=== PATIENT | female | born 1930 | race Caucasian/White ===

== ENCOUNTER 2016-10-18 21:29 | Emergency (ER) | payer MEDICARE ==
[2016-10-18] MEDS ORDERED: NORMAL SALINE 1000 ML 500 ML IV ONE (22:56)
--- NOTE | 2016-10-18 23:04 | ER Document Report ---
ED General - General Chief Complaint: Altered Mental Status Stated Complaint: NAUSEA,URINARY SYMPTOMS Notes: Patient is a 85 year old female that the family brings in due to increased confusion over last 2 days. They said that she possibly had a TIA several months ago. Since then she's had very mild occasional confusion. I see no last 2 days she's been very weak, confused, having difficulty talking or communicating with them. She does have history of chronic nausea. She has had workups for this including upper GI endoscopy as well as colonoscopy. These were done on October 16. The upper GI endoscopy showed a Schatzki's ring. They did do esophageal dilation. She did eat fairly well today. The colonoscopy showed a polyp. They're waiting results of this. These procedures were performed by Dr. Avilez. Patient is originally from the [facility] but over last several months has been living with her son and daughter here in the [place] area. No fevers. No cough. No congestion. She denies any pain. No focal weakness or numbness plates at this time. Patient's son is a pharmacist with the hospital. He is at bedside and is able to give a good history. Patient's daughter is also very involved in her care and at bedside as well. TRAVEL OUTSIDE OF THE [place] IN LAST 30 DAYS: No - Related Data Allergies/Adverse Reactions: No Known Allergies Allergy (Verified 10/18/16 21:57) Past Medical History - Social History Smoking Status: Never Smoker Chew tobacco use (# tins/day): No Frequency of alcohol use: None Drug Abuse: None Family History: Reviewed & Not Pertinent Renal/ Medical History: Denies: Hx Peritoneal Dialysis Review of Systems - Review of Systems Notes: My Normal Review Basic REVIEW OF SYSTEMS: CONSTITUTIONAL : Denies fever, chills, or sweats. Denies recent illness. EENT: Denies eye, ear, throat, or mouth pain or symptoms. Denies nasal or sinus congestion. CARDIOVASCULAR: Denies chest pain. RESPIRATORY: Denies cough, cold, or chest congestion. Denies shortness of breath, difficulty breathing, or wheezing. GASTROINTESTINAL: Denies abdominal pain. Denies nausea, vomiting, or diarrhea. Denies constipation. Last BM: GENITOURINARY: Denies difficulty urinating, painful urination, burning, frequency, or blood in urine.: MUSCULOSKELETAL: Denies neck or back pain or joint pain or swelling. SKIN: Denies rash or skin lesions. HEMATOLOGIC : Denies easy bruising or bleeding. NEUROLOGICAL: Confusion Denies headache. Denies weakness or paralysis or loss of use of either side. Denies problems with gait or speech. Denies sensory or motor loss. ALL OTHER SYSTEMS REVIEWED AND NEGATIVE. Physical Exam - Vital signs Vitals: Temp Pulse Resp BP Pulse Ox 98.5 F 81 18 170/83 H 97 10/18/16 21:59 10/18/16 21:59 10/18/16 21:59 10/18/16 21:59 10/18/16 21:59 - Notes Notes: General Appearance: Well nourished, alert, cooperative, no acute distress, no obvious discomfort. She is very weak on exam. Vitals: reviewed, See vital signs table. Head: no swelling or tenderness to the head Eyes: PERRL, EOMI, Conjuctiva clear Mouth: No decreasd moisture Throat: No tonsillar inflammation, No airway obstruction, No lymphadenopathy Neck: Supple, no neck tenderness, No thyromegaly Lungs: No wheezing, No rales, No rhonci, No accessory muscle use, good air exchange bilaterally. Heart: Normal rate, Regular rythm, No murmur, no rub Abdomen: Normal BS, soft, No rigidity, No abdominal tenderness, No guarding, no rebound, no abdominal masses, no organomegaly Extremities: strength 5/5 in all extremities, good pulses in all extremities, no swelling or tenderness in the extremities, no edema. Skin: warm, dry, appropriate color, no rash Neuro: speech clear, oriented x 3, normal affect, responds appropriately to questions. Cranial nerves II through XII are intact. Distal sensation intact. Patient has equal strength in all 4 extremities. Course - Vital Signs Vital signs: Temp Pulse Resp BP Pulse Ox 97.9 F 63 20 114/55 L 98 10/19/16 02:38 10/19/16 02:38 10/19/16 02:38 10/19/16 02:38 10/19/16 02:38 - Laboratory Result Diagrams: 10/18/16 23:05 10/18/16 23:05 Laboratory results interpreted by me: 10/18/16 10/18/16 10/19/16 23:05 23:05 00:14 Hgb 11.4 L Hct 34.2 L RDW 14.1 H Seg Neutrophils % 84.1 H Lymphocytes % 8.5 L BUN 31 H Creatinine 1.96 H Est GFR ( Amer) 29 L Est GFR (Non-Af Amer) 24 L Glucose 126 H Total Protein 6.2 L Urine Protein 100 H Urine Blood LARGE H Ur Leukocyte Esterase MODERATE H - EKG Interpretation by Me Additional EKG results interpreted by me: 10/18/16 23:24 EKG is reviewed and interpreted by me. EKG shows normal sinus rhythm with a rate of [address] segment elevation or depression. No ischemic T wave inversions. OR interval, QRS duration, QTC intervals are within normal range. No old EKG available for comparison. - Transfer of Care Notes: 10/19/16 05:09 Patient is feeling much improved. She did have a little bit nausea like she's had chronically. I gave her 1 dose of Zofran and she says that it helped her greatly. Also home with Zofran. Her QTc interval on her EKG is normal therefore think this is okay for her. She does have urinary tract infection. This explain some of the altered mental status that she had at home. Currently she is awake alert and acting appropriately. I did discuss the case with the patient's daughter. She does feel hopeful take her home. Patient looks very well and is feeling improved. She's not septic or toxic appearing. She has no leukocytosis. She has no fevers. I did give her a dose Rocephin here. We will send her urine for culture. I did send her home on Cipro. I strongly encouraged him to return to ER immediately if the patient has fevers, has recurrent confusion, or appears unwell. The patient and her daughter agree with plan and Mrs. Leon will be discharged home. Dictation of this chart was performed using voice recognition software; therefore, there may be some unintended grammatical errors. Discharge - Discharge Clinical Impression: UTI (urinary tract infection) Qualifiers: Urinary tract infection type: site unspecified Hematuria presence: with hematuria Qualified Code(s): N39.0 - Urinary tract infection, site not specified Condition: Good Disposition: HOME, SELF-CARE Additional Instructions: URINARY TRACT INFECTION: Your evaluation indicates that you have a urinary tract infection. This is due to germs growing in the bladder. This is a common problem. This infection usually responds quickly to antibiotics. Your antibiotic should be taken exactly as prescribed. Drink plenty of fluids -- three to four quarts a day. Occasionally, a bladder anesthetic will be prescribed to help stop the feeling of urgency until the antibiotic has a chance to clear the infection. This may cause your urine to be dark orange. Certain urine infections require a culture. If the doctor obtained a culture, the results will be back in two days. You should call to see if a change in treatment is needed. A repeat urinalysis after you finish treatment is often recommended. The physician will let you know if further testing is required. Call the doctor if you develop fever, chills, flank pain, inability to urinate, or blood in the urine. ANTIBIOTIC THERAPY: You have been given an antibiotic prescription. It's important that you take all the medication, unless instructed otherwise by your physician. Failure to complete the entire course can result in relapse of your condition. Common side effects of antibiotics include nausea, intestinal cramping, or diarrhea. Women may develop vaginal yeast infections, and babies can get yeast (thrush) in the mouth following the use of antibiotics. Contact your physician if you develop significant side effects from this medication. Allergy to this antibiotic can result in hives, wheezing, faintness, or itching. If symptoms of allergy occur, stop the medication and call the doctor. CIPROFLOXACIN: You have been given an antibacterial agent, ciprofloxacin (Cipro). This medicine is not related to the penicillins, sulfas, cephalosporins, or tetracyclines. It is often given to patients who are allergic to these drugs. It has been chosen for you either because other drugs are not appropriate, or because of the nature of your problem. Cipro should not be taken with antacids, as these can decrease its effectiveness. It can be taken without regard to meals. CIPRO SHOULD NOT BE TAKEN BY CHILDREN, NURSING WOMEN, OR WOMEN. Although Cipro is usually well-tolerated, common side effects can include nausea and diarrhea. Contact your doctor if you experience any unusual symptoms while on this medication, such as joint pain or swelling, shortness of breath, wheezing, faintness, or hives. FOLLOW-UP CARE: If you have been referred to a physician for follow-up care, call the physician s office for an appointment as you were instructed or within the next two days. If you experience worsening or a significant change in your symptoms, notify the physician immediately or return to the Emergency Department at any time for re-evaluation. Please follow-up with your doctor early this week for reevaluation. Please have a low threshold to return to ER immediately if you have recurrence of confusion, intractable vomiting, fevers, or feel unwell. Please take the Zofran as needed for nausea. Prescriptions: Cephalexin [Keflex] 500 mg PO BID #14 capsule Ondansetron [Zofran Odt 4 mg Tablet] 1 tab PO Q4H PRN #15 tab.rapdis PRN Reason: For Nausea/Vomiting Referrals: MG DAILEY MD [Primary Care Provider] - 10/21/16
[2016-10-18 23:17] LABS: ABSOLUTE BASOPHILS # (AUTO) 0.1 10^3/uL (0.0-0.2); ABSOLUTE LYMPHOCYTES (AUTO) 0.6 10^3/uL (0.5-4.7); ABSOLUTE MONOCYTES (AUTO) 0.4 10^3/uL (0.1-1.4); ABSOLUTE NEUT (AUTO) 5.5 10^3/uL (1.7-8.2); BASOPHILS % (AUTO) 0.8 % (0-2); EOSINOPHILS % (AUTO) 0.6 % (0-6); HEMATOCRIT 34.2 % (36.0-47.0); HEMOGLOBIN 11.4 g/dL (12.0-15.5); LYMPHOCYTES % (AUTO) 8.5 % (13-45); MEAN CORPUSCULAR HEMOGLOBIN 28.6 pg (27.0-33.4); MEAN CORPUSCULAR HGB CONC 33.3 g/dL (32.0-36.0); MEAN CORPUSCULAR VOLUME 86 fl (80-97); RED BLOOD COUNT 3.99 10^6/uL (3.72-5.28); RED CELL DISTRIBUTION WIDTH 14.1 % (11.5-14.0); SEGMENTED NEUTROPHILS % (AUTO) 84.1 % (42-78); WHITE BLOOD COUNT 6.6 10^3/uL (4.0-10.5)
[2016-10-18 23:29] LABS: ALANINE AMINOTRANSFERASE 19 U/L (9-52); ALBUMIN 3.6 g/dL (3.5-5.0); ALKALINE PHOSPHATASE 58 U/L (38-126); ANION GAP 9 (5-19); ASPARTATE AMINO TRANSFERASE 15 U/L (14-36); BILIRUBIN,TOTAL 0.5 mg/dL (0.2-1.3); BLOOD UREA NITROGEN 31 mg/dL (7-20); CALCIUM 9.8 mg/dL (8.4-10.2); CARBON DIOXIDE 27 mmol/L (22-30); CHLORIDE 104 mmol/L (98-107); CREATINE KINASE 55 U/L (30-135); CREATININE RESULT 1.96 mg/dL (0.52-1.25); GLUCOSE 126 mg/dL (75-110); MAGNESIUM 1.9 mg/dL (1.6-2.3); POTASSIUM 4.3 mmol/L (3.6-5.0); SODIUM 139.7 mmol/L (137-145); TOTAL PROTEIN 6.2 g/dL (6.3-8.2)
[2016-10-18 23:41] LABS: CREATINE KINASE MB 0.84 ng/mL (<4.55)
[2016-10-18 23:43] LABS: TROPONIN I < 0.012 ng/mL
[2016-10-19] MEDS ORDERED: ONDANSETRON HCL INJ/PF 4 MG/2 ML SDV IV ONE (00:23)
[2016-10-19 00:35] LABS: APPEARANCE,URINE CLOUDY; BILIRUBIN,URINE NEGATIVE (NEGATIVE); GLUCOSE, URINE NEGATIVE (NEGATIVE); KETONES,URINE NEGATIVE (NEGATIVE); LEUKOCYTE ESTERASE,URINE MODERATE (NEGATIVE); NITRITE,URINE NEGATIVE (NEGATIVE); PROTEIN,URINE 100 mg/dL (NEGATIVE); UROBILINOGEN,URINE NEGATIVE mg/dL (<2.0)
[2016-10-19] MEDS ORDERED: CEFTRIAXONE INJ 1000 MG VIAL IV ONE (00:57)
[2016-10-19] MEDS ORDERED: ONDANSETRON ODT 4 MG TAB (6 TAB/DSPK) PO PRN (02:03)
[2016-10-19 02:40] VITALS: BP 114/55
--- NOTE | 2016-10-19 08:23 | EKG REPORT ---
SEVERITY:- ABNORMAL ECG - SINUS RHYTHM CONSIDER LEFT VENTRICULAR HYPERTROPHY : Confirmed by: Ezra Schmitt MD 19-Oct-2016 08:22:57
== END 2016-10-19 02:38 | disposition home or self-care (01) ==
LOC: ER 21:29
DX: N39.0 Urinary tract infection, site not specified (principal); R41.0 Disorientation, unspecified; R11.0 Nausea; R53.1 Weakness; Z86.73 Personal history of transient ischemic attack (TIA), and cerebral infarction without residual deficits
CPT/HCPCS: 93005; 99285; 96361; 96375; 96365; 36415; 82553; 82550; 83735; 85025; 80053; 81001; 84484; 71010; 70450; 93010; J0696; J2405; J7030

== ENCOUNTER 2017-05-25 12:32 | Inpatient (IN) | payer MEDICARE ==
--- NOTE | 2017-05-25 12:55 | ER Document Report ---
ED Medical Screen (RME) - General Mode of Arrival: Wheelchair Information source: Patient, Relative - son TRAVEL OUTSIDE OF THE [place] IN LAST 30 DAYS: No <ALEJANDRINA ZAMORA - Last Filed: 05/25/17 13:01> <ARNOLD JACKSON - Last Filed: 05/25/17 14:36> - General Chief Complaint: Weakness Stated Complaint: FALL/WEAKNESS Time Seen by Provider: 05/25/17 12:38 Notes: Patient is a 86 year old female presenting to the emergency department for generalized weakness, double vision, and a frontal headache. Patient states that her head has been feeling funny for the past few days and she has been clutching her forehead. Patient states she has not been feeling well for the past week and has generalized weakness. Patient's double vision was onset this morning. Patient was helped to the bathroom this morning and she fell from a standing position. Patient states she did not hit her head but she landed on her left side; son states when he came back into the room, she was leaning up on the toilet and had not appeared to have had a hard fall. Patient's son states he did the arm raise test and she had equal strength bilaterally. Patient 's last known well was last night around 22:30. Patient states she cannot keep her eyes open. Patient is on plavix. (ALEJANDRINA ZAMORA) - Related Data Allergies/Adverse Reactions: No Known Allergies Allergy (Verified 05/25/17 12:35) Past Medical History Renal/ Medical History: Denies: Hx Peritoneal Dialysis <ALEJANDRINA ZAMORA - Last Filed: 05/25/17 13:01> Physical Exam <ALEJANDRINA ZAMORA - Last Filed: 05/25/17 13:01> <ARNOLD JACKSON - Last Filed: 05/25/17 14:36> - Vital signs Vitals: Temp Pulse Resp BP Pulse Ox 97.7 F 64 16 172/80 H 99 05/25/17 12:35 05/25/17 12:35 05/25/17 12:35 05/25/17 12:35 05/25/17 12:35 - Notes Notes: GENERAL: Alert. HEAD: Normocephalic, atraumatic. EYES: Pupils equal, round, and reactive to light. Right eye has lateral deviation, able to look up and down with right eye but not able to look medially. Vision intact with finger counting. ENT: Oral mucosa moist, tongue midline. NECK: Full range of motion. Supple. Trachea midline. LUNGS: Clear to auscultation bilaterally, no wheezes, rales, or rhonchi. No respiratory distress. HEART: Regular rate and rhythm. No murmurs, gallops, or rubs. EXTREMITIES: Moves all four extremities spontaneously. NEUROLOGICAL: Alert and oriented x3. Normal speech. Sensation grossly intact. (ALEJANDRINA ZAMORA) Course - Laboratory Result Diagrams: 05/25/17 13:15 05/25/17 13:15 <ARNOLD JACKSON - Last Filed: 05/25/17 14:36> - Vital Signs Vital signs: Temp Pulse Resp BP Pulse Ox 97.7 F 55 L 20 184/70 H 96 05/25/17 12:35 05/25/17 13:10 05/25/17 14:01 05/25/17 14:01 05/25/17 14:01 - Laboratory Laboratory results interpreted by me: 05/25/17 05/25/17 05/25/17 13:15 13:15 13:30 RBC 3.63 L Hgb 11.0 L Hct 32.0 L Lymphocytes % 12.7 L BUN 36 H Creatinine 2.00 H Est GFR ( Amer) 29 L Est GFR (Non-Af Amer) 24 L Alkaline Phosphatase 37 L Total Protein 5.8 L Albumin 3.4 L Urine Protein 100 H Urine Blood LARGE H Ur Leukocyte Esterase LARGE H Scribe Documentation - Scribe Written by Scribe:: Miryam De 05/25/2017 13:01 acting as scribe for :: Fabricio <ALEJANDRINA ZAMORA - Last Filed: 05/25/17 13:01>
--- NOTE | 2017-05-25 13:06 | RADIOLOGY REPORT (SQ) ---
EXAM DESCRIPTION: CT HEAD WITHOUT COMPLETED DATE/TIME: 05/25/2017 12:57 pm REASON FOR STUDY: double vision, BAUTISTA, stroke alert COMPARISON: 10/18/2016 TECHNIQUE: Axial images acquired through the brain without intravenous contrast. Images reviewed wi th bone, brain and subdural windows. Images stored on PACS. All CT scanners at this facility use dose modulation, iterative reconstruction, and/or weight based d osing when appropriate to reduce radiation dose to as low as reasonably achievable (ALARA). [facility]: Dose Right [facility]: CareDose [facility]: Dose Right [facility]: Teradose 4D [facility]: Web Wonks RADIATION DOSE: Up-to-date CT equipment and radiation dose reduction techniques were employed. CTDIv ol: 64.6 mGy. DLP: 1292 mGy-cm. mGy. LIMITATIONS: None. FINDINGS: VENTRICLES: Prominent. CEREBRUM: No masses. No hemorrhage. No midline shift. Areas of low density in the white matter mos t likely due to chronic micro-vascular ischemic change. No evidence for acute infarction. CEREBELLUM: No masses. No hemorrhage. No alteration of density. No evidence for acute infarction. EXTRAAXIAL SPACES: Mild age-related involutional change. No fluid collections. No masses. ORBITS AND GLOBE: No intra- or extraconal masses. Normal contour of globe without masses. CALVARIUM: No fracture. PARANASAL SINUSES: No fluid or mucosal thickening. SOFT TISSUES: No mass or hematoma. OTHER: No other significant finding. IMPRESSION: NO CT EVIDENCE OF ACUTE ISCHEMIA, HEMORRHAGE, OR MASS LESION. NO SIGNIFICANT CHANGE FRO M PRIOR STUDY. EVIDENCE OF ACUTE STROKE: NO. COMMENT: Pertinent positive or negative findings of the imaging study reported as a CRITICAL EXAM agustín JACKSON DO at12:59 on 05/25/2017. Category of Critical Exam: CODE STROKE TECHNICAL DOCUMENTATION: JOB ID: [id number] Quality ID # [id number]: Final reports with documentation of one or more dose reduction techniques (e.g., Au tomated exposure control, adjustment of the mA and/or kV according to patient size, use of iterative reconstruction technique) 2010 [employer]- All Rights Reserved
--- NOTE | 2017-05-25 13:14 | RADIOLOGY REPORT (SQ) ---
EXAM DESCRIPTION: CHEST SINGLE VIEW COMPLETED DATE/TIME: 05/25/2017 1:07 pm REASON FOR STUDY: double vision, BAUTISTA, stroke alert COMPARISON: 10/18/2016 EXAM PARAMETERS: NUMBER OF VIEWS: One view. TECHNIQUE: Single frontal radiographic view of the chest acquired. RADIATION DOSE: NA LIMITATIONS: None. FINDINGS: LUNGS AND PLEURA: No opacities, masses or pneumothorax. No pleural effusion. MEDIASTINUM AND HILAR STRUCTURES: No masses. Contour normal. HEART AND VASCULAR STRUCTURES: Heart stable in size. Normal vasculature. BONES: No acute findings. HARDWARE: None in the chest. OTHER: No other significant finding. IMPRESSION: NO ACUTE RADIOGRAPHIC FINDING IN THE CHEST. NO SIGNIFICANT CHANGE FROM PRIOR STUDY. TECHNICAL DOCUMENTATION: JOB ID: [id number]
[2017-05-25 13:31] LABS: ABSOLUTE BASOPHILS # (AUTO) 0.1 10^3/uL (0.0-0.2); ABSOLUTE EOSINOPHILS # (AUTO) 0.1 10^3/uL (0.0-0.6); ABSOLUTE LYMPHOCYTES (AUTO) 0.7 10^3/uL (0.5-4.7); ABSOLUTE MONOCYTES (AUTO) 0.4 10^3/uL (0.1-1.4); ABSOLUTE NEUT (AUTO) 4.3 10^3/uL (1.7-8.2); EOSINOPHILS % (AUTO) 2.4 % (0-6); LYMPHOCYTES % (AUTO) 12.7 % (13-45); MEAN CORPUSCULAR HEMOGLOBIN 30.2 pg (27.0-33.4); MEAN CORPUSCULAR HGB CONC 34.3 g/dL (32.0-36.0); MEAN CORPUSCULAR VOLUME 88 fl (80-97); MONOCYTES % (AUTO) 7.3 % (3-13); RED BLOOD COUNT 3.63 10^6/uL (3.72-5.28); SEGMENTED NEUTROPHILS % (AUTO) 76.6 % (42-78); WHITE BLOOD COUNT 5.5 10^3/uL (4.0-10.5)
[2017-05-25 13:35] LABS: PROTHROMBIN TIME 13.8 SEC (11.4-15.4)
[2017-05-25 13:51] LABS: ALANINE AMINOTRANSFERASE 30 U/L (9-52); ALBUMIN 3.4 g/dL (3.5-5.0); ALKALINE PHOSPHATASE 37 U/L (38-126); ANION GAP 10 (5-19); ASPARTATE AMINO TRANSFERASE 17 U/L (14-36); BILIRUBIN,DIRECT 0.3 mg/dL (0.0-0.4); BILIRUBIN,TOTAL 0.4 mg/dL (0.2-1.3); BLOOD UREA NITROGEN 36 mg/dL (7-20); CALCIUM 10.2 mg/dL (8.4-10.2); CARBON DIOXIDE 25 mmol/L (22-30); CHLORIDE 106 mmol/L (98-107); CREATINE KINASE 38 U/L (30-135); GLUCOSE 86 mg/dL (75-110); POTASSIUM 4.4 mmol/L (3.6-5.0); SODIUM 141.3 mmol/L (137-145); TOTAL PROTEIN 5.8 g/dL (6.3-8.2)
[2017-05-25] MEDS ORDERED: NORMAL SALINE 1000 ML 1,000 ML IV PRN (13:59)
[2017-05-25 14:02] LABS: CREATINE KINASE MB 1.13 ng/mL (<4.55)
[2017-05-25 14:03] LABS: APPEARANCE,URINE CLOUDY; BILIRUBIN,URINE NEGATIVE (NEGATIVE); GLUCOSE, URINE NEGATIVE (NEGATIVE); KETONES,URINE NEGATIVE (NEGATIVE); LEUKOCYTE ESTERASE,URINE LARGE (NEGATIVE); NITRITE,URINE NEGATIVE (NEGATIVE); PROTEIN,URINE 100 mg/dL (NEGATIVE); URINE SPECIFIC GRAVITY 1.006; UROBILINOGEN,URINE NEGATIVE mg/dL (<2.0)
[2017-05-25 14:03] LABS: TROPONIN I < 0.012 ng/mL
[2017-05-25] MEDS ORDERED: CEFTRIAXONE 1 GM/D5W RTU 1 GM/50 ML RTUPB IV ONE (14:12)
--- NOTE | 2017-05-25 14:46 | ER Document Report ---
ED General - General Chief Complaint: Weakness Stated Complaint: FALL/WEAKNESS Time Seen by Provider: 05/25/17 12:38 Mode of Arrival: Wheelchair Information source: Patient Notes: 86-year-old female presents with 2 week duration of worsening weakness. Patient denies any fevers or chills denies any nausea or vomiting. Patient has a history of UTIs was treated for urinary tract infection 3 weeks ago with Cipro. It was noted patient was extremely weak today took a fall TRAVEL OUTSIDE OF THE [place] IN LAST 30 DAYS: No - HPI Onset: Other Onset/Duration: Persistent Quality of pain: Achy Severity: Mild Pain Level: 1 Associated symptoms: Body/muscle aches Exacerbated by: Movement Relieved by: Denies Similar symptoms previously: Yes Recently seen / treated by doctor: Yes - Related Data Allergies/Adverse Reactions: No Known Allergies Allergy (Verified 05/25/17 12:35) Home Medications: Current Home Medications Clonidine HCl [Catapres 0.1 mg Tablet] 0.1 mg PO Q12 05/25/17 [History] Clopidogrel Bisulfate [Plavix 75 mg Tablet] 75 mg PO DAILY 05/25/17 [History] Fesoterodine Fumarate [Toviaz] 4 mg PO [id number] 05/25/17 [History] Lisinopril [Prinivil 2.5 mg Tablet] 2.5 mg PO DAILY 05/25/17 [History] Metoprolol Succinate [Toprol Xl 50 mg Tab.sr] 50 mg PO Q12 05/25/17 [History] Mirtazapine [Remeron 15 mg Tablet] 15 mg PO QHS 05/25/17 [History] Multivitamin [Tab-A-Brenda (Multiple Vitamin) Tablet] 1 tab PO DAILY 05/25/17 [ History] Pantoprazole Sodium [Protonix] 40 mg PO DAILY 05/25/17 [History] Trazodone HCl [Desyrel 50 mg Tablet] 50 mg PO QHS 05/25/17 [History] Past Medical History - General Information source: Patient, Relative - son - Social History Smoking Status: Unknown if Ever Smoked Cigarette use (# per day): No Chew tobacco use (# tins/day): No Smoking Education Provided: No Frequency of alcohol use: None Drug Abuse: None Family History: Reviewed & Not Pertinent - Past Medical History Cardiac Medical History: Reports: Hx Hypercholesterolemia, Hx Hypertension Renal/ Medical History: Denies: Hx Peritoneal Dialysis GI Medical History: Reports: Hx Gastroesophageal Reflux Disease Musculoskeltal Medical History: Reports Hx Arthritis Psychiatric Medical History: Reports: Hx Depression Past Surgical History: Reports: Hx Hysterectomy, Hx Orthopedic Surgery - toes - Immunizations Hx Diphtheria, Pertussis, Tetanus Vaccination: Yes Review of Systems - Review of Systems Notes: REVIEW OF SYSTEMS: CONSTITUTIONAL : Denies fever, chills, or sweats. Denies recent illness. EENT: Denies eye, ear, throat, or mouth pain or symptoms. Denies nasal or sinus congestion or discharge. Denies throat, tongue, or mouth swelling or difficulty swallowing. CARDIOVASCULAR: Denies chest pain. Denies palpitations or racing or irregular heart beat. Denies ankle edema. RESPIRATORY: Denies cough, cold, or chest congestion. Denies shortness of breath, difficulty breathing, or wheezing. GASTROINTESTINAL: Denies abdominal pain or distention. Denies nausea, vomiting , or diarrhea. Denies blood in vomitus, stools, or per rectum. Denies black, tarry stools. Denies constipation. GENITOURINARY: Denies difficulty urinating, painful urination, burning, frequency, blood in urine, or discharge. FEMALE GENITOURINARY: Denies vaginal bleeding, heavy or abnormal periods, irregular periods. Denies vaginal discharge or odor. MUSCULOSKELETAL: Denies back or neck pain or stiffness. Denies joint pain or swelling. SKIN: Denies rash, lesions or sores. HEMATOLOGIC : Denies easy bruising or bleeding. LYMPHATIC: Denies swollen, enlarged glands. NEUROLOGICAL: Admits to generalized weakness PSYCHIATRIC: Denies anxiety or stress. Denies depression, suicidal ideation, or homicidal ideation. ALL OTHER SYSTEMS REVIEWED AND NEGATIVE. PHYSICAL EXAMINATION: GENERAL: Well-appearing, well-nourished and in no acute distress. HEAD: Atraumatic, normocephalic. EYES: Pupils equal round and reactive to light, extraocular movements intact, conjunctiva are normal. ENT: Nares patent, oropharynx clear without exudates. Moist mucous membranes. NECK: Normal range of motion, supple without lymphadenopathy LUNGS: Breath sounds clear to auscultation bilaterally and equal. No wheezes rales or rhonchi. HEART: Regular rate and rhythm without murmurs ABDOMEN: Soft, nontender, nondistended abdomen. No guarding, no rebound. No masses appreciated. Female : deferred Musculoskeletal: Normal range of motion, no pitting or edema. No cyanosis. NEUROLOGICAL: Cranial nerves grossly intact. Normal speech, normal gait. Normal sensory, motor exams PSYCH: Normal mood, normal affect. SKIN: Warm, Dry, normal turgor, no rashes or lesions noted. Dictation was performed using [employer] voice recognition software Physical Exam - Vital signs Vitals: Temp Pulse Resp BP Pulse Ox 97.7 F 64 16 172/80 H 99 05/25/17 12:35 05/25/17 12:35 05/25/17 12:35 05/25/17 12:35 05/25/17 12:35 Course - Re-evaluation Re-evalutation: 05/25/17 16:12 Lab work is consistent with a urinary tract infection, patient started on Rocephin, she is extremely weak and unable to ambulate at home and has taken a fall. As a result I will observe the patient. She does have chronic kidney disease - Vital Signs Vital signs: Temp Pulse Resp BP Pulse Ox 97.7 F 55 L 21 H 187/81 H 98 05/25/17 12:35 05/25/17 13:10 05/25/17 15:01 05/25/17 15:01 05/25/17 15:01 - Laboratory Result Diagrams: 05/25/17 13:15 05/25/17 13:15 Laboratory results interpreted by me: 05/25/17 05/25/17 05/25/17 13:15 13:15 13:30 RBC 3.63 L Hgb 11.0 L Hct 32.0 L Lymphocytes % 12.7 L BUN 36 H Creatinine 2.00 H Est GFR ( Amer) 29 L Est GFR (Non-Af Amer) 24 L Alkaline Phosphatase 37 L Total Protein 5.8 L Albumin 3.4 L Urine Protein 100 H Urine Blood LARGE H Ur Leukocyte Esterase LARGE H - Diagnostic Test Radiology reviewed: Image reviewed, Reports reviewed Discharge - Discharge Clinical Impression: Weakness CKD (chronic kidney disease) Qualifiers: Chronic kidney disease stage: stage 3 (moderate) Qualified Code(s): N18.3 - Chronic kidney disease, stage 3 (moderate) UTI (urinary tract infection) Qualifiers: Urinary tract infection type: acute cystitis Hematuria presence: without hematuria Qualified Code(s): N30.00 - Acute cystitis without hematuria HTN (hypertension) Qualifiers: Hypertension type: essential hypertension Qualified Code(s): I10 - Essential ( primary) hypertension Condition: Stable Disposition: ADMITTED INPATIENT Admitting Provider: Hospitalist Unit Admitted: Telemetry
[2017-05-25] MEDS ORDERED: ONDANSETRON 4 MG TAB.RAPDIS PO PRN (15:25)
[2017-05-25] MEDS ORDERED: ACETAMINOPHEN 325 MG TABLET PO PRN (15:25)
[2017-05-25] MEDS ORDERED: HYDRALAZINE HCL INJ/PF 20 MG/1 ML SDV IV ONE (15:34)
[2017-05-25] MEDS ORDERED: HYDRALAZINE HCL INJ/PF 20 MG/1 ML SDV IV PRN (15:36)
[2017-05-25] MEDS ORDERED: NIFEDIPINE 30 MG TAB.ER.24 PO ONE (15:38)
--- NOTE | 2017-05-25 16:06 | PDOC H&P ---
History of Present Illness Admission Date/PCP: 05/25/17 15:20 MG DAILEY MD Patient complains of: Altered Mental Status, Vision Change, and Weakness History of Present Illness: RUSSELL NOVAK is a 86 year old female presents to the emergency room with complaint of weakness, vision change, and head discomfort. Patient's son is patient's caregiver who states that this morning patient was sitting at the table for breakfast and was dozing off to sleep. Patient stated that his mother reported that she was not feeling well. Son reports that patient was treated for urinary tract infection approximately 2 weeks ago. Son also reports that patient's PCP adjust the patient's blood pressure medications for better control. Son reports the patient takes metoprolol, clonidine, and lisinopril. Son also reports that patient was also started on mirtazapine. Patient states that she is still experiencing head discomfort. Patient also states that her vision is not back to his baseline. Patient states that she does have macular degeneration but this vision change is somewhat different. Patient denies chest pain or shortness of breath. Patient also reports that she does feel somewhat confused which is not normal for her. Son also reports that patient fell in the restroom this morning. Son states that he help guide his mother to the restroom and shut the door when he left his mother she had fallen toward the shower. Son states that patient was resting on shower chair located in tub. Past Medical History Cardiac Medical History: Reports: Hyperlipidema, Hypertension GI Medical History: Reports: Gastroesophageal Reflux Disease Musculoskeltal Medical History: Reports: Arthritis Psychiatric Medical History: Reports: Depression Hematology: Reports: Anemia Past Surgical History Past Surgical History: Reports: Hysterectomy, Orthopedic Surgery - toes Social History Smoking Status: Unknown if Ever Smoked Family History Family History: Reviewed & Not Pertinent Parental Family History Reviewed: Yes Children Family History Reviewed: Yes Sibling(s) Family History Reviewed.: Yes Medication/Allergy Home Medications: Clonidine HCl [Catapres 0.1 mg Tablet] 0.1 mg PO Q12 05/25/17 Clopidogrel Bisulfate [Plavix 75 mg Tablet] 75 mg PO DAILY 05/25/17 Fesoterodine Fumarate [Toviaz] 4 mg PO [id number] 05/25/17 Lisinopril [Prinivil 2.5 mg Tablet] 2.5 mg PO DAILY 05/25/17 Metoprolol Succinate [Toprol Xl 50 mg Tab.sr] 50 mg PO Q12 05/25/17 Mirtazapine [Remeron 15 mg Tablet] 15 mg PO QHS 05/25/17 Multivitamin [Tab-A-Brenda (Multiple Vitamin) Tablet] 1 tab PO DAILY 05/25/17 Pantoprazole Sodium [Protonix] 40 mg PO DAILY 05/25/17 Trazodone HCl [Desyrel 50 mg Tablet] 50 mg PO QHS 05/25/17 Allergies/Adverse Reactions: No Known Allergies Allergy (Verified 05/25/17 12:35) Review of Systems Constitutional: PRESENT: fatigue, headache(s), weakness Eyes: PRESENT: visual disturbances Ears: ABSENT: hearing changes Cardiovascular: ABSENT: chest pain, dyspnea on exertion, edema, orthropnea, palpitations Respiratory: ABSENT: cough, hemoptysis Gastrointestinal: ABSENT: abdominal pain, constipation, diarrhea, hematemesis, hematochezia, nausea, vomiting Genitourinary: ABSENT: dysuria, hematuria Musculoskeletal: ABSENT: joint swelling Integumentary: ABSENT: rash, wounds Neurological: PRESENT: frequent falls, weakness Psychiatric: ABSENT: anxiety, depression, homidical ideation, suicidal ideation Hematologic/Lymphatic: ABSENT: easy bleeding, easy bruising Physical Exam Vital Signs: Temp Pulse Resp BP Pulse Ox 97.7 F 55 L 20 184/70 H 96 05/25/17 12:35 05/25/17 13:10 05/25/17 14:01 05/25/17 14:01 05/25/17 14:01 General appearance: PRESENT: no acute distress, well-developed, well-nourished Head exam: PRESENT: atraumatic, normocephalic Eye exam: PRESENT: conjunctival injection, EOMI Ear exam: PRESENT: normal external ear exam Mouth exam: PRESENT: moist, tongue midline Neck exam: ABSENT: carotid bruit, JVD, lymphadenopathy, thyromegaly Respiratory exam: PRESENT: clear to auscultation tato. ABSENT: rales, rhonchi, wheezes Cardiovascular exam: PRESENT: bradycardia Pulses: PRESENT: normal dorsalis pedis pul Vascular exam: PRESENT: normal capillary refill GI/Abdominal exam: PRESENT: normal bowel sounds, soft. ABSENT: distended, guarding, mass, organolmegaly, rebound, tenderness Rectal exam: PRESENT: deferred Extremities exam: PRESENT: full ROM. ABSENT: calf tenderness, clubbing, pedal edema Neurological exam: PRESENT: alert, awake, oriented to person, oriented to place , oriented to time, oriented to situation, CN II-XII grossly intact. ABSENT: motor sensory deficit Psychiatric exam: PRESENT: appropriate affect, normal mood. ABSENT: homicidal ideation, suicidal ideation Skin exam: PRESENT: dry, intact, warm. ABSENT: cyanosis, rash Results Impressions: Chest X-Ray 05/25/17 12:46 IMPRESSION: NO ACUTE RADIOGRAPHIC FINDING IN THE CHEST. NO SIGNIFICANT CHANGE FROM PRIOR STUDY. Head CT 05/25/17 12:46 IMPRESSION: NO CT EVIDENCE OF ACUTE ISCHEMIA, HEMORRHAGE, OR MASS LESION. NO SIGNIFICANT CHANGE FROM PRIOR STUDY. EVIDENCE OF ACUTE STROKE: NO. Assessment & Plan - Diagnosis (1) Hypertensive emergency Is this a current diagnosis for this admission?: Yes Plan: We will write for hydralazine now and then as needed hydralazine. Will place patient on Procardia. Goal is to decrease blood pressure slowly. (2) Acute metabolic encephalopathy Is this a current diagnosis for this admission?: Yes Plan: Most likely secondary to hypertension and mirtazapine: We will discontinue mirtazapine. Will adjust her pressure medication for better control. (3) Fall Qualifiers: Encounter type: initial encounter Qualified Code(s): W19.XXXA - Unspecified fall, initial encounter Is this a current diagnosis for this admission?: Yes Plan: Will have patient work with PT OT (4) CKD (chronic kidney disease) Qualifiers: Chronic kidney disease stage: stage 3 (moderate) Qualified Code(s): N18.3 - Chronic kidney disease, stage 3 (moderate) Is this a current diagnosis for this admission?: Yes Plan: We will monitor renal function closely. Patient's renal function appears to be at baseline. (5) UTI (urinary tract infection) Qualifiers: Urinary tract infection type: acute cystitis Hematuria presence: without hematuria Qualified Code(s): N30.00 - Acute cystitis without hematuria Is this a current diagnosis for this admission?: Yes Plan: We will continue Rocephin until urine culture results are known (6) Debility Is this a current diagnosis for this admission?: Yes Plan: We will have PT OT work with patient. (7) Vision changes Is this a current diagnosis for this admission?: Yes Plan: We will reassess in a.m. Will see if complaint improves if not will have ophthalmology see patient (8) DVT prophylaxis Is this a current diagnosis for this admission?: Yes Plan: SCDs - Time Time Spent: 30 to 50 Minutes
[2017-05-25] MEDS: NIFEDIPINE 30 MG TAB.ER.24 PO SCH (22:33)
[2017-05-26 05:17] LABS: ABSOLUTE EOSINOPHILS # (AUTO) 0.1 10^3/uL (0.0-0.6); ABSOLUTE LYMPHOCYTES (AUTO) 0.8 10^3/uL (0.5-4.7); ABSOLUTE MONOCYTES (AUTO) 0.4 10^3/uL (0.1-1.4); ABSOLUTE NEUT (AUTO) 4.1 10^3/uL (1.7-8.2); BASOPHILS % (AUTO) 0.9 % (0-2); EOSINOPHILS % (AUTO) 2.5 % (0-6); HEMATOCRIT 30.8 % (36.0-47.0); HEMOGLOBIN 10.7 g/dL (12.0-15.5); HGB HCT DIFFERENCE 1.3; LYMPHOCYTES % (AUTO) 14.4 % (13-45); MEAN CORPUSCULAR HEMOGLOBIN 30.6 pg (27.0-33.4); MEAN CORPUSCULAR HGB CONC 34.9 g/dL (32.0-36.0); MEAN CORPUSCULAR VOLUME 88 fl (80-97); MONOCYTES % (AUTO) 6.8 % (3-13); RED BLOOD COUNT 3.51 10^6/uL (3.72-5.28); RED CELL DISTRIBUTION WIDTH 14.2 % (11.5-14.0); SEGMENTED NEUTROPHILS % (AUTO) 75.4 % (42-78); WHITE BLOOD COUNT 5.4 10^3/uL (4.0-10.5)
[2017-05-26 05:32] LABS: ANION GAP 10 (5-19); BLOOD UREA NITROGEN 35 mg/dL (7-20); CALCIUM 9.9 mg/dL (8.4-10.2); CARBON DIOXIDE 22 mmol/L (22-30); CHLORIDE 111 mmol/L (98-107); CREATININE RESULT 1.92 mg/dL (0.52-1.25); GLUCOSE 91 mg/dL (75-110); POTASSIUM 3.8 mmol/L (3.6-5.0); SODIUM 143.2 mmol/L (137-145)
[2017-05-26 06:05] LABS: THYROID STIMULATING HORMONE 1.24 uIU/mL (0.47-4.68)
--- NOTE | 2017-05-26 06:24 | EKG REPORT ---
SEVERITY:- NORMAL ECG - SINUS RHYTHM : Confirmed by: Sonali Chahal MD 26-May-2017 06:24:19
[2017-05-26] MEDS: CEFTRIAXONE 1 GM/D5W RTU 1 GM/50 ML RTUPB IV SCH (09:24)
[2017-05-26] MEDS: NIFEDIPINE 30 MG TAB.ER.24 PO SCH ×2 (09:24→22:36)
[2017-05-26] MEDS ORDERED: NIFEDIPINE 30 MG TAB.ER.24 PO ONE (14:20)
[2017-05-26] MEDS ORDERED: ACETAMINOPHEN 325 MG TABLET PO PRN (14:20)
[2017-05-26] MEDS ORDERED: ONDANSETRON 4 MG TAB.RAPDIS PO PRN (14:30)
[2017-05-26] MEDS ORDERED: HYDRALAZINE HCL INJ/PF 20 MG/1 ML SDV IV PRN (14:30)
--- NOTE | 2017-05-26 15:15 | PDOC PROGRESS REPORT ---
Subjective Progress Note for:: 05/26/17 Subjective:: Patient was seen earlier this morning who states that her vision has not improved. Patient states her vision is so poor that she is not able to feed herself. Nursing states that patient's blood pressure has been under better control. Patient is no longer complaining of headache. Physical Exam Vital Signs: Temp Pulse Resp BP Pulse Ox 98.4 F 91 17 159/65 H 99 05/26/17 11:35 05/26/17 11:35 05/26/17 11:35 05/26/17 11:35 05/26/17 11:35 Intake & Output 05/25/17 05/26/17 05/27/17 06:59 06:59 06:59 Intake Total 160 Output Total 500 Balance -340 Weight 71 kg General appearance: PRESENT: no acute distress, well-developed, well-nourished Head exam: PRESENT: atraumatic, normocephalic Eye exam: PRESENT: conjunctiva pink, EOMI Ear exam: PRESENT: normal external ear exam Mouth exam: PRESENT: moist, tongue midline Neck exam: ABSENT: carotid bruit, JVD, lymphadenopathy, thyromegaly Respiratory exam: PRESENT: clear to auscultation tato. ABSENT: rales, rhonchi, wheezes Cardiovascular exam: PRESENT: bradycardia, RRR. ABSENT: diastolic murmur, rubs , systolic murmur Pulses: PRESENT: normal dorsalis pedis pul Vascular exam: PRESENT: normal capillary refill GI/Abdominal exam: PRESENT: normal bowel sounds, soft. ABSENT: distended, guarding, mass, organolmegaly, rebound, tenderness Rectal exam: PRESENT: deferred Extremities exam: PRESENT: full ROM. ABSENT: calf tenderness, clubbing, pedal edema Neurological exam: PRESENT: alert, awake, oriented to person, oriented to place , oriented to time, oriented to situation, CN II-XII grossly intact. ABSENT: motor sensory deficit Psychiatric exam: PRESENT: appropriate affect, normal mood. ABSENT: homicidal ideation, suicidal ideation Skin exam: PRESENT: dry, intact, warm. ABSENT: cyanosis, rash Results Laboratory Results: 05/26/17 03:54 05/26/17 03:54 05/26/17 05/26/17 05/26/17 03:54 03:54 03:54 WBC 5.4 RBC 3.51 L Hgb 10.7 L Hct 30.8 L MCV 88 MCH 30.6 MCHC 34.9 RDW 14.2 H Plt Count 176 Seg Neutrophils % 75.4 Lymphocytes % 14.4 Monocytes % 6.8 Eosinophils % 2.5 Basophils % 0.9 Absolute Neutrophils 4.1 Absolute Lymphocytes 0.8 Absolute Monocytes 0.4 Absolute Eosinophils 0.1 Absolute Basophils 0.0 Sodium 143.2 Potassium 3.8 Chloride 111 H Carbon Dioxide 22 Anion Gap 10 BUN 35 H Creatinine 1.92 H Est GFR ( Amer) 30 L Est GFR (Non-Af Amer) 25 L Glucose 91 Calcium 9.9 TSH 1.24 Free T4 1.51 05/25/17 05/25/17 05/26/17 16:09 22:05 03:54 Troponin I < 0.012 < 0.012 < 0.012 Impressions: Chest X-Ray 05/25/17 12:46 IMPRESSION: NO ACUTE RADIOGRAPHIC FINDING IN THE CHEST. NO SIGNIFICANT CHANGE FROM PRIOR STUDY. Head CT 05/25/17 12:46 IMPRESSION: NO CT EVIDENCE OF ACUTE ISCHEMIA, HEMORRHAGE, OR MASS LESION. NO SIGNIFICANT CHANGE FROM PRIOR STUDY. EVIDENCE OF ACUTE STROKE: NO. Assessment & Plan - Diagnosis (1) Hypertensive encephalopathy Is this a current diagnosis for this admission?: Yes Plan: Patient's confusion has resolved. Patient continues to state that she is not able to see well. We will have ophthalmology evaluate patient. Will increase Procardia to 60 mg p.o. twice daily. (2) Vision changes Is this a current diagnosis for this admission?: Yes Plan: Dr. Heath has been consulted ophthalmology. Feel that this is most likely related to patient's hypertension. (3) Hypertensive emergency Is this a current diagnosis for this admission?: Yes Plan: Patient did receive IV hydralazine. Patient's Procardia will be adjusted to 60 mg p.o. daily. Patient still complaining of poor vision. Will have ophthalmology evaluate patient. (4) Acute metabolic encephalopathy Is this a current diagnosis for this admission?: Yes Plan: Secondary to hypertensive encephalopathy: Resolved. (5) Fall Qualifiers: Encounter type: initial encounter Qualified Code(s): W19.XXXA - Unspecified fall, initial encounter Is this a current diagnosis for this admission?: Yes Plan: We will have patient work with PT OT (6) CKD (chronic kidney disease) Qualifiers: Chronic kidney disease stage: stage 3 (moderate) Qualified Code(s): N18.3 - Chronic kidney disease, stage 3 (moderate) Is this a current diagnosis for this admission?: Yes Plan: Patient's renal function is at baseline. (7) UTI (urinary tract infection) Qualifiers: Urinary tract infection type: acute cystitis Hematuria presence: without hematuria Qualified Code(s): N30.00 - Acute cystitis without hematuria Is this a current diagnosis for this admission?: Yes Plan: Urine culture pending.Will continue Rocephin (8) Debility Is this a current diagnosis for this admission?: Yes Plan: We will have PT OT work with patient. (9) DVT prophylaxis Is this a current diagnosis for this admission?: Yes Plan: SCDs - Time Time Spent with patient: 15-24 minutes
[2017-05-27] MEDS: NIFEDIPINE 30 MG TAB.ER.24 PO SCH ×2 (10:55→21:30)
[2017-05-27] MEDS: MULTIVITAMIN TABLET PO SCH (10:56)
[2017-05-27] MEDS: CLOPIDOGREL BISULFATE 75 MG TABLET PO SCH (10:56)
[2017-05-27] MEDS: CEFTRIAXONE 1 GM/D5W RTU 1 GM/50 ML RTUPB IV SCH (10:56)
--- NOTE | 2017-05-27 17:53 | PDOC PROGRESS REPORT ---
Subjective Progress Note for:: 05/27/17 Subjective:: Patient is a 86-year-old female who presented with hypertensive emergency now complaining of continued vision loss. States she has poor vision at baseline due to macular degeneration. However patient is found to have a paralysis of the right eye most likely due to ischemia. Patient was evaluated by ophthalmology. Did have a discussion with patient's son as to patient's current situation. Physical Exam Vital Signs: Temp Pulse Resp BP Pulse Ox 98.8 F 107 H 16 149/67 H 95 05/27/17 15:50 05/27/17 15:50 05/27/17 15:50 05/27/17 15:50 05/27/17 15:50 Intake & Output 05/26/17 05/27/17 05/28/17 06:59 06:59 06:59 Intake Total 160 1487 850 Output Total 500 800 200 Balance -340 687 650 Weight 71 kg 71 kg General appearance: PRESENT: no acute distress, other - elderly Head exam: PRESENT: normocephalic Eye exam: PRESENT: other - EOMI palsey of right eye Neck exam: PRESENT: full ROM Respiratory exam: PRESENT: clear to auscultation tato. ABSENT: unlabored Cardiovascular exam: PRESENT: RRR, +S1, +S2 GI/Abdominal exam: PRESENT: normal bowel sounds, soft. ABSENT: tenderness Rectal exam: PRESENT: deferred Extremities exam: ABSENT: pedal edema Musculoskeletal exam: PRESENT: full ROM Neurological exam: PRESENT: other - paralysis of the right eye inablility to move inward Psychiatric exam: PRESENT: normal mood Skin exam: PRESENT: intact, warm Results Laboratory Results: 05/26/17 03:54 05/26/17 03:54 05/25/17 05/25/17 05/26/17 16:09 22:05 03:54 Troponin I < 0.012 < 0.012 < 0.012 Impressions: Chest X-Ray 05/25/17 12:46 IMPRESSION: NO ACUTE RADIOGRAPHIC FINDING IN THE CHEST. NO SIGNIFICANT CHANGE FROM PRIOR STUDY. Head CT 05/25/17 12:46 IMPRESSION: NO CT EVIDENCE OF ACUTE ISCHEMIA, HEMORRHAGE, OR MASS LESION. NO SIGNIFICANT CHANGE FROM PRIOR STUDY. EVIDENCE OF ACUTE STROKE: NO. Assessment & Plan - Diagnosis (1) Ophthalmalgia Qualifiers: Laterality: right Qualified Code(s): H57.11 - Ocular pain, right eye Is this a current diagnosis for this admission?: Yes Plan: Evaluated by ophthalmology who recommended patient have an MRI of the brain. Patient has a right ophthalmoplegia most likely due to ischemia from being hypertensive. Per ophthalmology tissue resolved to 3 months on his own. Patient patient may not improve very much as she does have advanced macular degeneration. (2) CKD (chronic kidney disease) Qualifiers: Chronic kidney disease stage: stage 3 (moderate) Qualified Code(s): N18.3 - Chronic kidney disease, stage 3 (moderate) Is this a current diagnosis for this admission?: Yes Plan: Patient renal function at baseline (3) DVT prophylaxis Is this a current diagnosis for this admission?: Yes Plan: Continue SCDs (4) Debility Is this a current diagnosis for this admission?: Yes Plan: Patient receiving PT OT evaluation. Patient may have debilitated due to her inability to see. (5) Fall Qualifiers: Encounter type: initial encounter Qualified Code(s): W19.XXXA - Unspecified fall, initial encounter Is this a current diagnosis for this admission?: Yes Plan: Patient being evaluated by PT and OT (6) Hypertensive encephalopathy Is this a current diagnosis for this admission?: Yes Plan: Patient mentation is now improved. Patient blood pressures are better controlled on current medications. MRI of the brain was ordered as patient does have a ophthalmoplegia. Acutely patient patient may not improve much following better control of her blood pressures patient does have [employer] degeneration. Patient ophthalmoplegia may improve after several months. (7) UTI (urinary tract infection) Qualifiers: Urinary tract infection type: acute cystitis Hematuria presence: without hematuria Qualified Code(s): N30.00 - Acute cystitis without hematuria Is this a current diagnosis for this admission?: Yes Plan: Urine culture still pending. Continue ceftriaxone. - Time Time Spent with patient: 15-24 minutes Anticipated discharge: Home with Homehealth - Discussed plan of care with patient's son. Also spoke with flight operations inspector regarding further evaluation and testing.
--- NOTE | 2017-05-27 19:04 | RADIOLOGY REPORT (SQ) ---
EXAM DESCRIPTION: MRI HEAD WITHOUT COMPLETED DATE/TIME: 05/27/2017 6:41 pm REASON FOR STUDY: stroke COMPARISON: 05/25/[address] TECHNIQUE: Multiplanar imaging includes non-contrasted T1, T2, FLAIR, and diffusion with ADC map seq uences. Images stored on PACS. LIMITATIONS: None. FINDINGS: ANATOMY: No anomalies. Normal vascular flow voids. Pituitary fossa normal. CSF SPACES: Atrophy induced prominence of ventricles and CSF spaces. CEREBRUM: High signal intensity lesions scattered throughout the white matter on FLAIR imaging with d istribution suggesting micro-vascular ischemic changes. No evidence of hemorrhage, mass, or extraaxi al fluid collection. POSTERIOR FOSSA: No signal alteration. No hemorrhage. No edema, masses or mass effect. Internal junior tory canals, cerebello-pontine angles, mastoids normal. DIFFUSION IMAGING: Positive for acute or sub-acute 3 mm lacunar infarction in the left temporal lobe- subcortical insular region. ORBITS: No masses. Globes normal. PARANASAL SINUSES: No fluid levels. Mucosa normal. OTHER: No other significant finding. IMPRESSION: Positive for acute or sub-acute 3 mm lacunar infarction in the left temporal lobe- subco rtical insular region. EVIDENCE OF ACUTE STROKE: Yes LEFT MCA TECHNICAL DOCUMENTATION: JOB ID: [id number]- All Rights Reserved
[2017-05-27] MEDS: TRAZODONE HCL 50 MG TABLET PO SCH (21:29)
[2017-05-28] MEDS ORDERED: (PENDING PHARMACY ID) (Fesoterodine Fumarate [Toviaz] 4 MG) PO SCH (08:00)
[2017-05-28] MEDS ORDERED: ASPIRIN 81 MG TABLET, CHEWABLE PO ONE (10:30)
[2017-05-28] MEDS: CLOPIDOGREL BISULFATE 75 MG TABLET PO SCH (10:30)
[2017-05-28] MEDS: MULTIVITAMIN TABLET PO SCH (10:31)
[2017-05-28] MEDS: CEFTRIAXONE 1 GM/D5W RTU 1 GM/50 ML RTUPB IV SCH (10:31)
[2017-05-28] MEDS: NIFEDIPINE 30 MG TAB.ER.24 PO SCH ×2 (10:31→22:00)
[2017-05-28] MEDS ORDERED: OMEGA-3 ACID ETHYL ESTERS 1 GM CAPSULE PO ONE ×2 (11:00→16:30)
[2017-05-28] MEDS ORDERED: LANSOPRAZOLE 30 MG TAB.RAP.DR PO ONE (11:30)
[2017-05-28 11:50] LABS: CHOLESTEROL 219.48 mg/dL (0-200); Direct HDL 56 mg/dL (>40); TRIGLYCERIDES 151 mg/dL (<150)
[2017-05-28 12:01] LABS: DIRECT LDL 141 mg/dL (<100)
[2017-05-28 12:02] LABS: VLDL CHOLESTEROL 30.2 mg/dL (10-31)
--- NOTE | 2017-05-28 15:35 | RADIOLOGY REPORT (SQ) ---
EXAM DESCRIPTION: CAROTID DOPPLER COMPLETED DATE/TIME: 05/28/2017 2:50 pm REASON FOR STUDY: stroke COMPARISON: CT brain 10/18/2016, 05/25/2017 MRI brain 05/27/2017 TECHNIQUE: Grayscale ultrasound, Doppler velocity and spectra, and color Doppler images acquired of the extra-cranial carotid and vertebral arteries. Images stored on PACS. LIMITATIONS: None. FINDINGS: RIGHT CAROTID CCA Velocities: Within normal limits. ICA Velocities Peak systolic 0.62 m/s. End diastolic 0.12 m/s. Proximal ICA/CCA peak systolic ratio 1.5. Spectra normal. No significant plaque. LEFT CAROTID CCA Velocities: Within normal limits. ICA Velocities Peak systolic 0.98 m/s. End diastolic 0.16 m/s. Proximal ICA/CCA peak systolic ratio 1.8. Spectra normal. No significant plaque. VERTEBRAL ARTERIES: Antegrade flow. Normal waveforms. SUBCLAVIAN ARTERIES: Not examined OTHER: No other significant finding. IMPRESSION: NO HEMODYNAMICALLY SIGNIFICANT STENOSIS. COMMENT: Quality ID #[id number]: Velocity criteria are extrapolated from the diameter data as defined by t he Society of Radiologists in Ultrasound Consensus Conference. Radiology 2003: 229; 340-346. TECHNICAL DOCUMENTATION: JOB ID: [id number] [employer]- All Rights Reserved
--- NOTE | 2017-05-28 19:12 | PDOC PROGRESS REPORT ---
Subjective Progress Note for:: 05/28/17 Subjective:: Patient is a 86-year-old female who presented with hypertensive emergency now complaining of continued vision loss. States she has poor vision at baseline due to macular degeneration. However patient is found to have a paralysis of the right eye most likely due to ischemia. Patient was evaluated by ophthalmology. Patient did have MRI of the brain which did show a subacute acute stroke. Patient is having some weakness when ambulating she is leaning to one side. Did have a long discussion with patient's son and they are agreeable for her to go to rehab. Patient family did mention [facility] in [place]. Physical Exam Vital Signs: Temp Pulse Resp BP Pulse Ox 99.0 F 104 H 28 H 129/60 H 98 05/28/17 15:20 05/28/17 16:00 05/28/17 16:00 05/28/17 16:00 05/28/17 16:00 Intake & Output 05/27/17 05/28/17 05/29/17 06:59 06:59 06:59 Intake Total 1487 1813 100 Output Total 800 1200 Balance 687 613 100 Weight 71 kg 71 kg General appearance: PRESENT: no acute distress Head exam: PRESENT: normocephalic Eye exam: PRESENT: periorbital swelling Mouth exam: PRESENT: moist, neck supple Neck exam: PRESENT: full ROM. ABSENT: JVD Respiratory exam: PRESENT: clear to auscultation tato, unlabored Cardiovascular exam: PRESENT: RRR, +S1, +S2 GI/Abdominal exam: PRESENT: normal bowel sounds, soft. ABSENT: tenderness Rectal exam: PRESENT: deferred Extremities exam: ABSENT: pedal edema, tenderness Musculoskeletal exam: PRESENT: normal inspection Neurological exam: PRESENT: alert, awake, oriented to person, oriented to place , oriented to time, oriented to situation - impaired vision Psychiatric exam: PRESENT: normal mood Skin exam: PRESENT: warm - ecchymosis Results Laboratory Results: 05/26/17 03:54 05/26/17 03:54 05/28/17 11:12 Triglycerides 151 H Cholesterol 219.48 H LDL Cholesterol Direct 141 H VLDL Cholesterol 30.2 HDL Cholesterol 56 05/25/17 05/25/17 05/26/17 16:09 22:05 03:54 Troponin I < 0.012 < 0.012 < 0.012 Impressions: Chest X-Ray 05/25/17 12:46 IMPRESSION: NO ACUTE RADIOGRAPHIC FINDING IN THE CHEST. NO SIGNIFICANT CHANGE FROM PRIOR STUDY. Head CT 05/25/17 12:46 IMPRESSION: NO CT EVIDENCE OF ACUTE ISCHEMIA, HEMORRHAGE, OR MASS LESION. NO SIGNIFICANT CHANGE FROM PRIOR STUDY. EVIDENCE OF ACUTE STROKE: NO. Head MRI 05/27/17 00:00 IMPRESSION: Positive for acute or sub-acute 3 mm lacunar infarction in the left temporal lobe- subcortical insular region. EVIDENCE OF ACUTE STROKE: Yes LEFT MCA Carotid Doppler Study 05/28/17 00:00 IMPRESSION: NO HEMODYNAMICALLY SIGNIFICANT STENOSIS. Assessment & Plan - Diagnosis (1) CVA (cerebral vascular accident) Qualifiers: CVA mechanism: occlusion Precerebral and cerebral artery: middle cerebral artery Laterality of affected vessel: right Qualified Code(s): I63.511 - Cerebral infarction due to unspecified occlusion or stenosis of right middle cerebral artery Is this a current diagnosis for this admission?: Yes Plan: I show subacute acute stroke. Patient already on Plavix were added aspirin 325. Patient is intolerant to statin. She was however started on omega-3 patient on DVT prophylaxis with SCDs. PT OT consulted. Patient is having some gait instability. Patient being referred to rehab. (2) Ophthalmalgia Qualifiers: Laterality: right Qualified Code(s): H57.11 - Ocular pain, right eye Is this a current diagnosis for this admission?: Yes Plan: MRI brain shows subacute stroke. Patient has a right ophthalmoplegia most likely due to ischemia from being hypertensive however this can also happen with a midbrain stroke. Per ophthalmology this should resolve in 3 months. Patient vision may not improve very much as she does have advanced macular degeneration. (3) CKD (chronic kidney disease) Qualifiers: Chronic kidney disease stage: stage 3 (moderate) Qualified Code(s): N18.3 - Chronic kidney disease, stage 3 (moderate) Is this a current diagnosis for this admission?: Yes Plan: Patient renal function at baseline. He does have a CKD stage IV. (4) DVT prophylaxis Is this a current diagnosis for this admission?: Yes Plan: Continue SCDs (5) Debility Is this a current diagnosis for this admission?: Yes Plan: Patient receiving PT OT evaluation. Patient may have debilitated due to her inability to see however this may be impacted by patient acute subacute 3 mm lacunar infarct in the left temporal lobe subacute cortical insular region or a left MCA stroke. (6) Fall Qualifiers: Encounter type: initial encounter Qualified Code(s): W19.XXXA - Unspecified fall, initial encounter Is this a current diagnosis for this admission?: Yes Plan: Patient being evaluated by PT and OT. Gait instability may be secondary to acute stroke. Case management being consulted for rehab placement. (7) Hypertensive encephalopathy Is this a current diagnosis for this admission?: Yes Plan: Patient mentation is now improved. Patient blood pressures are better controlled on current medications. MRI show subacute stroke. (8) UTI (urinary tract infection) Qualifiers: Urinary tract infection type: acute cystitis Hematuria presence: without hematuria Qualified Code(s): N30.00 - Acute cystitis without hematuria Is this a current diagnosis for this admission?: Yes Plan: Urine culture still pending. Continue ceftriaxone. - Time Time Spent with patient: Less than 15 minutes Anticipated discharge: SNF Within: when bed available - Stent will have to be accepted by rehabilitation. Case management was consulted in regards to this. Did have a long discussion with the son regarding the treatment and care plan for the patient.
--- NOTE | 2017-05-28 19:28 | XCELERA REPORT ---
[address] [address] Transthoracic Echocardiogram Report Name: RUSSELL NOVAK Age: 86 yrs Gender: Female : 1930 Patient Status: Inpatient Patient Location: [address] [place] [address] Study Date: 05/28/2017 10:37 AM Height: 65 in Weight: 156 lb BSA: 1.8 m2 Procedure: A complete two-dimensional transthoracic echocardiogram was performed (2D, M-mode, spectral and color flow Doppler). The study was technically difficult with many images being suboptimal in quality. Reason For Study: stroke Ordering Physician: CARRIE ANDERSEN Performed By: Janet Mccauley Interpretation Summary The study was technically difficult with many images being suboptimal in quality. The left ventricular ejection fraction is normal. There is borderline concentric left ventricular hypertrophy. The left ventricle is grossly normal size. Doppler measurements suggest pseudonormalized left ventricular relaxation, which is associated with grade II/IV or mild to moderate diastolic dysfunction Wall motion cannot be accurately commented on, but no definite regional wall motion abnormalities noted. Regional wall motion abnormalities cannot be excluded due to limited visualization. The right ventricular systolic function is normal. The left atrial size is normal. The right atrium is mildly dilated. There is a trace amount of mitral regurgitation There is no mitral valve stenosis. No aortic regurgitation is present. There is no aortic valve stenosis There is a trace to mild amount of tricuspid regurgitation There is mild pulmonary hypertension by echo Right ventricular systolic pressure is estimated to be elevated at 30- 40mmHg. The aortic root is not well visualized. The inferior vena cava was not well visualized Minimal pericardial effusion. MMode/2D Measurements & Calculations RVDd: 2.5 cm LVIDd: 4.1 cm FS: 31.9 % Ao root diam: 3.0 cm IVSd: 1.0 cm LVIDs: 2.8 cm EDV(Teich): 76.4 ml LVPWd: 1.0 cm ESV(Teich): 30.3 ml Ao root area: 7.0 cm2 EF(Teich): 60.4 % LA dimension: 3.5 cm Doppler Measurements & Calculations MV E max brenda: MV P1/2t max brenda: Ao V2 max: LV V1 max P.5 cm/sec 75.5 cm/sec 148.6 cm/sec 7.2 mmHg MV A max brenda: MV P1/2t: 89.4 msec Ao max PG: LV V1 max: 99.7 cm/sec 8.8 mmHg 133.8 cm/sec MV E/A: 0.79 MVA(P1/2t): 2.5 cm2 MV dec slope: 247.4 cm/sec2 MV dec time: 0.29 sec PA V2 max: TR max brenda: 142.6 cm/sec 268.8 cm/sec PA max PG: TR max P.9 mmHg 8.1 mmHg Left Ventricle The left ventricle is grossly normal size. There is borderline concentric left ventricular hypertrophy. The left ventricular ejection fraction is normal. Doppler measurements suggest pseudonormalized left ventricular relaxation, which is associated with grade II/IV or mild to moderate diastolic dysfunction. Wall motion cannot be accurately commented on, but no definite regional wall motion abnormalities noted. Regional wall motion abnormalities cannot be excluded due to limited visualization. Right Ventricle The right ventricle is mildly dilated. There is normal right ventricular wall thickness. The right ventricular systolic function is normal. Atria The right atrium is mildly dilated. The left atrial size is normal. Interarterial septum not well visualized and not well dopplered. Cannot comment on ASD/PFO presence. Mitral Valve The mitral valve is grossly normal. There is no mitral valve stenosis. There is a trace amount of mitral regurgitation. Aortic Valve The aortic valve is not well visualized secondary to technical limitations. There is no aortic valve stenosis. No aortic regurgitation is present. Tricuspid Valve The tricuspid valve is not well visualized secondary to technical limitations. There is no tricuspid stenosis. There is a trace to mild amount of tricuspid regurgitation. There is mild pulmonary hypertension by echo. Right ventricular systolic pressure is estimated to be elevated at 30-40mmHg. Pulmonic Valve The pulmonic valve is not well visualized. Great Vessels The aortic root is not well visualized. The inferior vena cava was not well visualized. Effusions Minimal pericardial effusion. Incidental Findings No definite cardiac source of CVA/TIA noted on this particular trans- thoracic study. Consider INOCENTE if clinically indicated. May consider mobile cardiac telemetry monitoring (MCT) for ruling out transient AFIB. : CARRIE ANDERSEN > Jose Hinson
[2017-05-28] MEDS: TRAZODONE HCL 50 MG TABLET PO SCH (22:00)
[2017-05-28] MEDS ORDERED: ATORVASTATIN CALCIUM 40 MG TABLET PO SCH (22:00)
[2017-05-29] MEDS ORDERED: LANSOPRAZOLE 30 MG TAB.RAP.DR PO SCH (06:00)
[2017-05-29] MEDS: FESOTERODINE FUMARATE 4 MG PO SCH (08:23)
[2017-05-29] MEDS: NIFEDIPINE 30 MG TAB.ER.24 PO SCH ×2 (10:29→21:17)
[2017-05-29] MEDS: CEFTRIAXONE 1 GM/D5W RTU 1 GM/50 ML RTUPB IV SCH (10:29)
[2017-05-29] MEDS: CLOPIDOGREL BISULFATE 75 MG TABLET PO SCH (10:29)
[2017-05-29] MEDS: MULTIVITAMIN TABLET PO SCH (10:29)
[2017-05-29] MEDS: OMEGA-3 ACID ETHYL ESTERS 1 GM CAPSULE PO SCH (10:29)
[2017-05-29] MEDS: PANTOPRAZOLE SODIUM 40 MG PO SCH (10:29)
[2017-05-29] MEDS ORDERED: CARBOXYMETHYLCELLULOSE SOD 0.5% 0.4 ML DROPERETTE OU PRN (12:33)
[2017-05-29] MEDS: TOBRAMYCIN SULFATE/DEXAMETH OPH SUSP 2.5 ML OD SCH ×3 (13:16→21:17)
[2017-05-29] MEDS ORDERED: METOPROLOL TARTRATE PF/INJ 5 MG/5 ML SDV IV ONE (18:31)
[2017-05-29] MEDS ORDERED: NORMAL SALINE 500 ML IV PRN (18:31)
--- NOTE | 2017-05-29 19:55 | EKG REPORT ---
SEVERITY:- OTHERWISE NORMAL ECG - SINUS TACHYCARDIA BORDERLINE LEFT AXIS DEVIATION : Confirmed by: Ezra Schmitt MD 29-May-2017 19:54:06
--- NOTE | 2017-05-29 20:22 | PDOC PROGRESS REPORT ---
Subjective Progress Note for:: 05/29/17 Subjective:: Patient is a 86-year-old female who presented with hypertensive emergency found to have a stroke. Patient states she is having difficulty opening the right eye. She is otherwise feeling okay. Physical Exam Vital Signs: Temp Pulse Resp BP Pulse Ox 98.4 F 127 H 28 H 137/63 H 98 05/29/17 15:56 05/29/17 16:00 05/29/17 16:00 05/29/17 16:00 05/29/17 16:00 Intake & Output 05/28/17 05/29/17 05/30/17 06:59 06:59 06:59 Intake Total 1813 400 532 Output Total 1200 Balance 613 400 532 Weight 71 kg 73.2 kg General appearance: PRESENT: no acute distress, well-nourished Head exam: PRESENT: normocephalic Eye exam: PRESENT: other - swelling of the right upper and lower lid with discharge on the eye. No tenderness. ABSENT: scleral icterus Ear exam: PRESENT: normal external ear exam Mouth exam: PRESENT: moist, tongue midline Neck exam: ABSENT: carotid bruit, JVD, lymphadenopathy, thyromegaly Respiratory exam: PRESENT: clear to auscultation tato. ABSENT: rales, rhonchi, wheezes Cardiovascular exam: PRESENT: RRR. ABSENT: diastolic murmur, rubs, systolic murmur Pulses: PRESENT: normal dorsalis pedis pul Vascular exam: PRESENT: normal capillary refill GI/Abdominal exam: PRESENT: normal bowel sounds, soft. ABSENT: distended, guarding, mass, organolmegaly, rebound, tenderness Rectal exam: PRESENT: deferred Extremities exam: PRESENT: full ROM. ABSENT: calf tenderness, clubbing, pedal edema Neurological exam: PRESENT: alert, awake, oriented to person, oriented to place , oriented to time, oriented to situation, other - Loss of vision and low of right eye movement.. ABSENT: motor sensory deficit Psychiatric exam: PRESENT: appropriate affect, normal mood. ABSENT: homicidal ideation, suicidal ideation Skin exam: PRESENT: dry, warm, other - ecchymosis of the legs.. ABSENT: cyanosis, rash Results Laboratory Results: 05/26/17 03:54 05/26/17 03:54 10/08/17 10/08/17 10/09/17 16:09 22:05 03:54 Troponin I < 0.012 < 0.012 < 0.012 Impressions: Chest X-Ray 05/25/17 12:46 IMPRESSION: NO ACUTE RADIOGRAPHIC FINDING IN THE CHEST. NO SIGNIFICANT CHANGE FROM PRIOR STUDY. Head CT 05/25/17 12:46 IMPRESSION: NO CT EVIDENCE OF ACUTE ISCHEMIA, HEMORRHAGE, OR MASS LESION. NO SIGNIFICANT CHANGE FROM PRIOR STUDY. EVIDENCE OF ACUTE STROKE: NO. Head MRI 05/27/17 00:00 IMPRESSION: Positive for acute or sub-acute 3 mm lacunar infarction in the left temporal lobe- subcortical insular region. EVIDENCE OF ACUTE STROKE: Yes LEFT MCA Carotid Doppler Study 05/28/17 00:00 IMPRESSION: NO HEMODYNAMICALLY SIGNIFICANT STENOSIS. Assessment & Plan - Diagnosis (1) CVA (cerebral vascular accident) Qualifiers: CVA mechanism: occlusion Precerebral and cerebral artery: middle cerebral artery Laterality of affected vessel: right Qualified Code(s): I63.511 - Cerebral infarction due to unspecified occlusion or stenosis of right middle cerebral artery Is this a current diagnosis for this admission?: Yes Plan: I show subacute acute stroke. Patient already on Plavix were added aspirin 325. Patient is intolerant to statin. She was however started on omega-3 patient on DVT prophylaxis with SCDs. PT OT consulted. Patient is having some gait instability. Plan for discharge to rehab in the morning. Will schedule follow up with neurology. Cardiology follow up for event monitor. (2) Ophthalmalgia Qualifiers: Laterality: right Qualified Code(s): H57.11 - Ocular pain, right eye Is this a current diagnosis for this admission?: Yes Plan: MRI brain shows subacute stroke. Patient has a right ophthalmoplegia most likely due to ischemia from being hypertensive however this can also happen with a midbrain stroke. Per ophthalmology this should resolve in 3 months. Patient vision may not improve very much as she does have advanced macular degeneration. Will schedule follow up on discharge. (3) CKD (chronic kidney disease) Qualifiers: Chronic kidney disease stage: stage 3 (moderate) Qualified Code(s): N18.3 - Chronic kidney disease, stage 3 (moderate) Is this a current diagnosis for this admission?: Yes Plan: Patient renal function at baseline. 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 (4) DVT prophylaxis Is this a current diagnosis for this admission?: Yes Plan: Continue SCDs (5) Debility Is this a current diagnosis for this admission?: Yes Plan: Secondary to stroke. PT/OT following. Plan for discharge to rehab in the morning. (6) Fall Qualifiers: Encounter type: initial encounter Qualified Code(s): W19.XXXA - Unspecified fall, initial encounter Is this a current diagnosis for this admission?: Yes Plan: PT/OT consulted. Plan for discharge to rehab in the morning. (7) Hypertensive encephalopathy Is this a current diagnosis for this admission?: Yes Plan: Patient mentation is now improved. Continue current blood pressure medication. (8) UTI (urinary tract infection) Qualifiers: Urinary tract infection type: acute cystitis Hematuria presence: without hematuria Qualified Code(s): N30.00 - Acute cystitis without hematuria Is this a current diagnosis for this admission?: Yes Plan: Ecoli uti. Patient has received 4 does of ceftriaxone. Last does to be given tomorrow. (9) Sinus tachycardia Is this a current diagnosis for this admission?: Yes Plan: Patient given IV bolus of fluids, metoprolol IV push 5mg x 1 and started on troprol XL 25mg dialy. Will follow up EKG. Will check electrolytes in the am. (10) Blepharitis Qualifiers: Laterality: right Eyelid: both upper and lower Is this a current diagnosis for this admission?: Yes Plan: Discussed with ophthamologist who recommended treating with artificial tears and antibiotic drops. Patient to follow up as out patient. - Time Time Spent with patient: 15-24 minutes Anticipated discharge: SNF Within: within 24 hours - If patient stable in the am will discharge to rehab
[2017-05-29] MEDS: TRAZODONE HCL 50 MG TABLET PO SCH (21:17)
[2017-05-30] MEDS: METOPROLOL TARTRATE PF/INJ 5 MG/5 ML SDV IV PRN ×2 (00:27→06:25)
[2017-05-30] MEDS: TOBRAMYCIN SULFATE/DEXAMETH OPH SUSP 2.5 ML OD SCH ×4 (02:32→14:23)
[2017-05-30 06:58] LABS: ANION GAP 13 (5-19); BLOOD UREA NITROGEN 35 mg/dL (7-20); CARBON DIOXIDE 21 mmol/L (22-30); CHLORIDE 109 mmol/L (98-107); CREATININE RESULT 2.22 mg/dL (0.52-1.25); GLUCOSE 122 mg/dL (75-110); POTASSIUM 3.7 mmol/L (3.6-5.0); SODIUM 142.6 mmol/L (137-145)
[2017-05-30] MEDS ORDERED: NORMAL SALINE 500 ML IV PRN (08:37)
[2017-05-30] MEDS ORDERED: POTASSIUM CHLORIDE 10 MEQ TABLET.SA PO ONE (08:37)
[2017-05-30] MEDS: FESOTERODINE FUMARATE 4 MG PO SCH (08:58)
[2017-05-30] MEDS: CLOPIDOGREL BISULFATE 75 MG TABLET PO SCH (09:10)
[2017-05-30] MEDS: NIFEDIPINE 30 MG TAB.ER.24 PO SCH (09:10)
[2017-05-30] MEDS: OMEGA-3 ACID ETHYL ESTERS 1 GM CAPSULE PO SCH (09:15)
[2017-05-30] MEDS: MULTIVITAMIN TABLET PO SCH (09:18)
[2017-05-30] MEDS: PANTOPRAZOLE SODIUM 40 MG PO SCH (09:20)
[2017-05-30] MEDS ORDERED: METOPROLOL SUCCINATE 25 MG TAB.SR.24H PO SCH ×3 (10:00→10:28)
--- NOTE | 2017-05-30 14:08 | PDOC TRANSFER SUMMARY ---
General - Admit/Disc Date/PCP Admission Date/Primary Care Provider: 05/25/17 15:25 MG DAILEY MD Discharge Date: 05/30/17 - Discharge Diagnosis (1) CVA (cerebral vascular accident) Is this a current diagnosis for this admission?: Yes (2) Ophthalmalgia Is this a current diagnosis for this admission?: Yes (3) CKD (chronic kidney disease) Is this a current diagnosis for this admission?: Yes (4) DVT prophylaxis Is this a current diagnosis for this admission?: Yes (5) Debility Is this a current diagnosis for this admission?: Yes (6) Fall Is this a current diagnosis for this admission?: Yes (7) Hypertensive encephalopathy Is this a current diagnosis for this admission?: Yes (8) UTI (urinary tract infection) Is this a current diagnosis for this admission?: Yes (9) Sinus tachycardia Is this a current diagnosis for this admission?: Yes (10) Blepharitis Is this a current diagnosis for this admission?: Yes - Additional Information Resuscitation Status: Full Code Discharge Diet: Cardiac, Full Liquids, Other (Comments) - no straws, make sure patient no drinking to quickly and head is positioned appropriately. Discharge Activity: Activity As Tolerated Home Medications: Clopidogrel Bisulfate [Plavix 75 mg Tablet] 75 mg PO DAILY 05/25/17 Fesoterodine Fumarate [Toviaz] 4 mg PO ACBRKFST 05/25/17 Metoprolol Succinate [Toprol Xl 50 mg Tab.sr] 50 mg PO Q12 05/25/17 Multivitamin [Tab-A-Rbenda (Multiple Vitamin) Tablet] 1 tab PO DAILY 05/25/17 Pantoprazole Sodium [Protonix] 40 mg PO DAILY 05/25/17 Trazodone HCl [Desyrel 50 mg Tablet] 50 mg PO QHS 05/25/17 Sucralfate [Carafate 1 gm Tablet] 1 gm PO MEALSHS 05/28/17 Acetaminophen [Tylenol 325 mg Tablet] 325 mg PO Q6HP PRN tablet 05/30/17 Carboxymethylcellulose Sodium [Refresh Plus 0.5% Oph Soln 0.4 ml Droperette] 1 drop OD BID droperette 05/30/17 Nifedipine [Procardia XL 30 mg Tablet] 60 mg PO Q12 tab.er.24 05/30/17 [place]-3 Acid Ethyl Esters [Lovaza 1 gm Capsule] 1 gm PO DAILY capsule 05/30/17 Tobramycin Sulfate [Tobrex 0.3% Oph Soln 5 ml] 1 drop OS Q12 5 Days #1 bottle History of Present Illness Admission Date/PCP: 05/25/17 15:25 MG DAILEY MD Patient complains of: Altered Mental Status, Vision Change, and Weakness History of Present Illness: RUSSELL NOVAK is a 86 year old female presents to the emergency room with complaint of weakness, vision change, and head discomfort. Patient's son is patient's caregiver who states that this morning patient was sitting at the table for breakfast and was dozing off to sleep. Patient stated that his mother reported that she was not feeling well. Son reports that patient was treated for urinary tract infection approximately 2 weeks ago. Son also reports that patient's PCP adjust the patient's blood pressure medications for better control. Son reports the patient takes metoprolol, clonidine, and lisinopril. Son also reports that patient was also started on mirtazapine. Patient states that she is still experiencing head discomfort. Patient also states that her vision is not back to his baseline. Patient states that she does have macular degeneration but this vision change is somewhat different. Patient denies chest pain or shortness of breath. Patient also reports that she does feel somewhat confused which is not normal for her. Son also reports that patient fell in the restroom this morning. Son states that he help guide his mother to the restroom and shut the door when he left his mother she had fallen toward the shower. Son states that patient was resting on shower chair located in tub. 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 Patient having a tendency to lean to the left and is weak when standing. Patient tends to want to lean her head back while drinking and has to be repositioned so she won't cough. Patient working with PT/OT who strongly recommend rehab. Patient started on aspirin in addition to the plavix which she was already on. Patient is intolerant to statin. She was however started on omega-3. Patient being discharged to rehab. Will schedule follow up with neurology. Cardiology follow up for event monitor. (2) Ophthalmalgia MRI brain shows subacute stroke. 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 Patient was evaluated by ophthalmology. Per ophthalmology this should resolve in 3 months. Patient vision may not improve very much as she does have advanced macular degeneration. Will schedule follow up with ophthalmology on discharge. (3) CKD (chronic kidney disease) Patient renal function at baseline. 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 (4) DVT prophylaxis Patient treated with SCDs. (5) Debility Secondary to stroke. Patient being discharged to rehab. Please refer to CVA for further details. (6) Fall PT/OT consulted. Patient being discharged to rehab. Please refer to CVA for further details. (7) Hypertensive encephalopathy Patient was very hypertensive on admission. Patient mentation is now improved with the use of procardia. Patient other blood pressure medications were discontinued. (8) UTI (urinary tract infection) Ecoli UTI treated with ceftriaxone. (9) Sinus tachycardia Patient developed sinus tachycardia but appears to have a problem with this as she is no toprolol XL 50mg bid at home. Will resume this medication on discharge. (10) Blepharitis This is affecting the right eye. Discussed with ophthamologist who recommended treating with artificial tears and antibiotic drops for a few days. He also implied that patient may be splinting or keeping that eye close because of the ophthalmaplegia that may be causing her to have diplopia and or eye discomfort. Patient to follow up as out patient. (11) Delerium Patient may had an episode of delerium last night. The can occurs because of an acute illness UTI and or hospitalization. Patient is now back to her baseline which is pleasant and cooperative. Physical Exam Vital Signs: Temp Pulse Resp BP Pulse Ox 97.8 F 102 H 22 H 133/54 H 96 05/30/17 11:55 05/30/17 11:55 05/30/17 11:55 05/30/17 11:55 05/30/17 11:55 Intake & Output 05/29/17 05/30/17 05/31/17 06:59 06:59 06:59 Intake Total 400 792 50 Balance 400 792 50 Weight 73.2 kg 72.2 kg General appearance: PRESENT: no acute distress, well-nourished Head exam: PRESENT: normocephalic Eye exam: PRESENT: other - fullness of the eye lids. Patient cannot move her right eye inward. ABSENT: scleral icterus Ear exam: PRESENT: normal external ear exam Mouth exam: PRESENT: moist, tongue midline Neck exam: ABSENT: carotid bruit, JVD, lymphadenopathy, thyromegaly Respiratory exam: PRESENT: clear to auscultation tato. ABSENT: rales, rhonchi, wheezes Cardiovascular exam: PRESENT: RRR. ABSENT: diastolic murmur, rubs, systolic murmur Pulses: PRESENT: normal dorsalis pedis pul Vascular exam: PRESENT: normal capillary refill GI/Abdominal exam: PRESENT: normal bowel sounds, soft. ABSENT: distended, guarding, mass, organolmegaly, rebound, tenderness Rectal exam: PRESENT: deferred Extremities exam: PRESENT: full ROM. ABSENT: calf tenderness, clubbing, pedal edema Neurological exam: PRESENT: alert, awake, oriented to person, oriented to place , oriented to time, oriented to situation, CN II-XII grossly intact, other - poor vision. Can move all extremities but weak when standing and leans to the left. ABSENT: motor sensory deficit Psychiatric exam: PRESENT: appropriate affect, normal mood. ABSENT: homicidal ideation, suicidal ideation Skin exam: PRESENT: dry, intact, warm, other - ecchymosis especially on the legs. ABSENT: cyanosis, rash Results Laboratory Results: 05/26/17 03:54 05/30/17 06:36 05/30/17 06:36 Sodium 142.6 Potassium 3.7 Chloride 109 H Carbon Dioxide 21 L Anion Gap 13 BUN 35 H Creatinine 2.22 H Est GFR ( Amer) 25 L Est GFR (Non-Af Amer) 21 L Glucose 122 H Calcium 10.0 Magnesium 2.0 05/27/17 03:19 Clean Catch Midstream Urine Culture - Final Escherichia Coli 05/25/17 05/25/17 05/26/17 16:09 22:05 03:54 Troponin I < 0.012 < 0.012 < 0.012 Impressions: Chest X-Ray 05/25/17 12:46 IMPRESSION: NO ACUTE RADIOGRAPHIC FINDING IN THE CHEST. NO SIGNIFICANT CHANGE FROM PRIOR STUDY. Head CT 05/25/17 12:46 IMPRESSION: NO CT EVIDENCE OF ACUTE ISCHEMIA, HEMORRHAGE, OR MASS LESION. NO SIGNIFICANT CHANGE FROM PRIOR STUDY. EVIDENCE OF ACUTE STROKE: NO. Head MRI 05/27/17 00:00 IMPRESSION: Positive for acute or sub-acute 3 mm lacunar infarction in the left temporal lobe- subcortical insular region. EVIDENCE OF ACUTE STROKE: Yes LEFT MCA Carotid Doppler Study 05/28/17 00:00 IMPRESSION: NO HEMODYNAMICALLY SIGNIFICANT STENOSIS. Transfer Plan - Time Spent with Patient Time spent with patient: Greater than 30 Minutes Qualifiers PATEINT BEING DISCHARGED WITH ANY OF THE FOLLOWING DIAGNOSIS?: Stroke VTE patient discharged on overlapping Therapy?: No Stroke Pt being discharged on Anti-thrombolytic therapy?: Yes Stroke Pt being discharged on Anti-coagulation therapy?: No Stroke Pt being discharged on Statins?: No Reason(s) for not prescribing Statins therapy:: Tx not tolerated
[2017-05-30 17:19] VITALS: BP 172/80
[2017-05-31] MEDS ORDERED: METOPROLOL SUCCINATE 25 MG TAB.SR.24H PO SCH (10:00)
== END 2017-05-30 17:47 | DRG 77 ==
LOC: ER 12:32 → EH 15:20 → UNDOADMIN 15:20 → EH 15:25 → 4N 16:40 → 3S 05-28 13:00
DX: I67.4 Hypertensive encephalopathy (principal); G93.41 Metabolic encephalopathy; I63.511 Cerebral infarction due to unspecified occlusion or stenosis of right middle cerebral artery; I16.1 Hypertensive emergency; N18.4 Chronic kidney disease, stage 4 (severe); N30.00 Acute cystitis without hematuria; B96.20 Unspecified Escherichia coli [E. coli] as the cause of diseases classified elsewhere; H49.9 Unspecified paralytic strabismus; I12.9 Hypertensive chronic kidney disease with stage 1 through stage 4 chronic kidney disease, or unspecified chronic kidney disease; R00.0 Tachycardia, unspecified; W18.30XA Fall on same level, unspecified, initial encounter; Y93.9 Activity, unspecified; Y92.012 Bathroom of single-family (private) house as the place of occurrence of the external cause; E78.5 Hyperlipidemia, unspecified; K21.9 Gastro-esophageal reflux disease without esophagitis; M19.90 Unspecified osteoarthritis, unspecified site; F32.9 Major depressive disorder, single episode, unspecified; T43.025A Adverse effect of tetracyclic antidepressants, initial encounter; D63.1 Anemia in chronic kidney disease; Z79.899 Other long term (current) drug therapy; Z90.710 Acquired absence of both cervix and uterus; H35.30 Unspecified macular degeneration; H57.11 Ocular pain, right eye
CPT/HCPCS: 36415; 51701; 70450; 70551; 71010; 80048; 80053; 80061; 81001; 82550; 82553; 83735; 84439; 84443; 84484; 85025; 85610; 85730; 87040; 87086; 87088; 87186; 93005; 93010; 93306; 93880; 96365; 99285; G8978-GP; G8979-GP; G8987-GO; G8988-GO; G8996-GN; G8997-GN; G8998-GN; J0360; J0696; J3490; J7040; S0119

== ENCOUNTER 2017-06-08 09:13 | Emergency (ER) | payer MEDICARE ==
[2017-06-08] MEDS ORDERED: NORMAL SALINE 1000 ML 1,000 ML IV PRN (09:21)
--- NOTE | 2017-06-08 09:23 | ER Document Report ---
ED General - General Stated Complaint: WEAKNESS Time Seen by Provider: 06/08/17 09:21 Information source: Patient, Friend, Outside Facility Records Notes: 86-year-old female presents with complaints of generalized weakness noted to be a DNR with an elevated white count 23 with a BUN of 54 from care facility. C. difficile culture was pending patient noted to have chronic left-sided weakness TRAVEL OUTSIDE OF THE [place] IN LAST 30 DAYS: No - HPI Onset: Just prior to arrival Onset/Duration: Sudden Quality of pain: No pain Severity: Mild Pain Level: Denies Associated symptoms: Weakness Exacerbated by: Denies Relieved by: Denies Similar symptoms previously: Yes Recently seen / treated by doctor: Yes - Related Data Allergies/Adverse Reactions: No Known Allergies Allergy (Verified 05/25/17 12:35) Home Medications: Current Home Medications Acetaminophen [Tylenol 325 mg Tablet] 325 mg PO Q6HP PRN 06/08/17 [History] Carboxymethylcellulose Sodium [Refresh Plus 0.5% Oph Soln 0.4 ml Droperette] 1 drop OD BID 06/08/17 [History] Clopidogrel Bisulfate [Plavix 75 mg Tablet] 75 mg PO DAILY 06/08/17 [History] Fesoterodine Fumarate [Toviaz] 4 mg PO ACBRKFST 06/08/17 [History] Metoprolol Succinate [Toprol Xl 50 mg Tab.sr] 50 mg PO Q12 06/08/17 [History] Multivitamin [Tab-A-Brenda (Multiple Vitamin) Tablet] 1 tab PO DAILY 06/08/17 [ History] Nifedipine [Procardia Xl 30 mg Tablet] 60 mg PO Q12 06/08/17 [History] [place]-3 Acid Ethyl Esters [Lovaza 1 gm Capsule] 1 gm PO DAILY 06/08/17 [History] Pantoprazole Sodium [Protonix] 40 mg PO DAILY 06/08/17 [History] Sucralfate [Carafate 1 gm Tablet] 1 gm PO ACHS 06/08/17 [History] Tobramycin Sulfate [Tobrex 0.3% Oph Soln 5 ml] 1 drop OS Q12 06/08/17 [History] Trazodone HCl [Desyrel 50 mg Tablet] 50 mg PO QHS 06/08/17 [History] Past Medical History - Social History Smoking Status: Never Smoker Cigarette use (# per day): No Chew tobacco use (# tins/day): No Smoking Education Provided: No Family History: Reviewed & Not Pertinent - Past Medical History Cardiac Medical History: Reports: Hx Hypercholesterolemia, Hx Hypertension Renal/ Medical History: Denies: Hx Peritoneal Dialysis GI Medical History: Reports: Hx Gastroesophageal Reflux Disease Musculoskeltal Medical History: Reports Hx Arthritis Psychiatric Medical History: Reports: Hx Depression Past Surgical History: Reports: Hx Hysterectomy, Hx Orthopedic Surgery - toes - Immunizations Hx Diphtheria, Pertussis, Tetanus Vaccination: Yes Review of Systems - Review of Systems Notes: REVIEW OF SYSTEMS: CONSTITUTIONAL : Denies fever, chills, or sweats. Denies recent illness. EENT: Denies eye, ear, throat, or mouth pain or symptoms. Denies nasal or sinus congestion or discharge. Denies throat, tongue, or mouth swelling or difficulty swallowing. CARDIOVASCULAR: Denies chest pain. Denies palpitations or racing or irregular heart beat. Denies ankle edema. RESPIRATORY: Denies cough, cold, or chest congestion. Denies shortness of breath, difficulty breathing, or wheezing. GASTROINTESTINAL: Denies abdominal pain or distention. Denies nausea, vomiting , or diarrhea. Denies blood in vomitus, stools, or per rectum. Denies black, tarry stools. Denies constipation. GENITOURINARY: Denies difficulty urinating, painful urination, burning, frequency, blood in urine, or discharge. FEMALE GENITOURINARY: Denies vaginal bleeding, heavy or abnormal periods, irregular periods. Denies vaginal discharge or odor. MUSCULOSKELETAL: Denies back or neck pain or stiffness. Denies joint pain or swelling. SKIN: Denies rash, lesions or sores. HEMATOLOGIC : Denies easy bruising or bleeding. LYMPHATIC: Denies swollen, enlarged glands. NEUROLOGICAL: Admits to weakness PSYCHIATRIC: Denies anxiety or stress. Denies depression, suicidal ideation, or homicidal ideation. ALL OTHER SYSTEMS REVIEWED AND NEGATIVE. PHYSICAL EXAMINATION: GENERAL: Elderly chronically ill-appearing HEAD: Atraumatic, normocephalic. EYES: Pupils equal round and reactive to light, extraocular movements intact, conjunctiva are normal. Right eye drainage ENT: Nares patent, oropharynx clear without exudates. Moist mucous membranes. NECK: Normal range of motion, supple without lymphadenopathy LUNGS: Breath sounds clear to auscultation bilaterally and equal. No wheezes rales or rhonchi. HEART: Regular rate and rhythm without murmurs ABDOMEN: Soft, nontender, nondistended abdomen. No guarding, no rebound. No masses appreciated. Female : deferred Musculoskeletal: Normal range of motion, no pitting or edema. No cyanosis. NEUROLOGICAL: Cranial nerves grossly intact. Normal speech, normal gait. Normal sensory, motor exams PSYCH: Normal mood, normal affect. SKIN: Warm, Dry, normal turgor, no rashes or lesions noted. Dictation was performed using [employer] voice recognition software Physical Exam - Vital signs Vitals: Temp Pulse Ox 97.7 F 97 06/08/17 09:20 06/08/17 09:20 Course - Re-evaluation Re-evalutation: 06/08/17 09:23 Septic workup pending patient will be given IV fluids, noted to have diarrhea 06/08/17 12:41 C. difficile is positive we will start the patient on Flagyl, fluids have been given she looks well otherwise 06/08/17 14:08 I spoke with son extensively agrees with discharge. I will discharge with understand that he must return immediately if there are any other cocnerns After performing a Medical Screening Examination, I estimate there is LOW risk for ACUTE APPENDICITIS, BOWEL OBSTRUCTION, ACUTE CHOLECYSTITIS, PERFORATED DIVERTICULITIS, INCARCERATED HERNIA, PANCREATITIS, PELVIC INFLAMMATORY DISEASE, PERFORATED ULCER, ECTOPIC , or TUBO-OVARIAN ABSCESS, thus I consider the discharge disposition reasonable. Also, there is no evidence or peritonitis , sepsis, or toxicity. I have reevaluated this patient multiple times and no significant life threatening changes are noted. The patient and I have discussed the diagnosis and risks, and we agree with discharging home with close follow-up with the understanding that symptoms and presentations can change. We also discussed returning to the Emergency Department immediately if new or worsening symptoms occur. We have discussed the symptoms which are most concerning (e.g., bloody stool, fever, changing or worsening pain, vomiting) that necessitate immediate return. - Vital Signs Vital signs: Temp Pulse Resp BP Pulse Ox 97.7 F 21 H 101/64 94 06/08/17 09:20 06/08/17 13:01 06/08/17 13:01 06/08/17 13:01 - Laboratory Result Diagrams: 06/08/17 09:20 06/08/17 09:20 Laboratory results interpreted by me: 10/22/17 10/22/17 10/22/17 09:20 09:20 09:20 WBC 21.4 H RBC 3.56 L Hgb 10.6 L Hct 30.8 L Seg Neuts % (Manual) 85 H Band Neutrophils % 6 H Lymphocytes % (Manual) 6 L Abs Neuts (Manual) 19.5 H PT 15.5 H VBG HCO3 Sodium 135.6 L Carbon Dioxide 17 L BUN 59 H Creatinine 2.40 H Est GFR ( Amer) 23 L Est GFR (Non-Af Amer) 19 L Glucose 121 H Total Protein 5.0 L Albumin 2.5 L Urine Protein Urine Blood 06/08/17 06/08/17 10:05 10:57 WBC RBC Hgb Hct Seg Neuts % (Manual) Band Neutrophils % Lymphocytes % (Manual) Abs Neuts (Manual) PT VBG HCO3 19.7 L Sodium Carbon Dioxide BUN Creatinine Est GFR ( Amer) Est GFR (Non-Af Amer) Glucose Total Protein Albumin Urine Protein 30 H Urine Blood LARGE H Discharge - Discharge Clinical Impression: C. difficile colitis CKD (chronic kidney disease) Qualifiers: Chronic kidney disease stage: stage 3 (moderate) Qualified Code(s): N18.3 - Chronic kidney disease, stage 3 (moderate) Condition: Stable Disposition: HOME, SELF-CARE Instructions: C. (Clostridium) Difficile Infection ([facility]) Additional Instructions: Follow up with your physician tomorrow for further care or return to the ED IMMEDIATELY if symptoms worsen or new concerns occur. If you cannot afford to follow up with your primary care physician a list of low cost clinics have been provided at the end of your discharge papers as well. Prescriptions: Metoclopramide HCl [Reglan 10 mg Tablet] 1 - 2 tab PO ASDIR PRN #25 tablet PRN Reason: Metronidazole [Flagyl 500 mg Tablet] 500 mg PO Q8 #42 tablet
[2017-06-08 10:03] LABS: HEMATOCRIT 30.8 % (36.0-47.0); HEMOGLOBIN 10.6 g/dL (12.0-15.5); MEAN CORPUSCULAR HEMOGLOBIN 29.8 pg (27.0-33.4); MEAN CORPUSCULAR HGB CONC 34.4 g/dL (32.0-36.0); MEAN CORPUSCULAR VOLUME 87 fl (80-97); RED BLOOD COUNT 3.56 10^6/uL (3.72-5.28); RED CELL DISTRIBUTION WIDTH 13.9 % (11.5-14.0); WHITE BLOOD COUNT 21.4 10^3/uL (4.0-10.5)
[2017-06-08 10:04] LABS: PROTHROMBIN TIME 15.5 SEC (11.4-15.4)
--- NOTE | 2017-06-08 10:04 | RADIOLOGY REPORT (SQ) ---
EXAM DESCRIPTION: CHEST SINGLE VIEW COMPLETED DATE/TIME: 06/08/2017 9:49 am REASON FOR STUDY: bed 15 sepsis protocol COMPARISON: Chest film 05/25/2017, 10/18/2016 EXAM PARAMETERS: NUMBER OF VIEWS: One view. TECHNIQUE: Single frontal radiographic view of the chest acquired. RADIATION DOSE: NA LIMITATIONS: None. FINDINGS: LUNGS AND PLEURA: No opacities, masses or pneumothorax. No pleural effusion. MEDIASTINUM AND HILAR STRUCTURES: No masses. Contour normal. HEART AND VASCULAR STRUCTURES: Heart normal in size. Normal vasculature. BONES: No acute findings. HARDWARE: None in the chest. OTHER: No other significant finding. IMPRESSION: NO ACUTE RADIOGRAPHIC FINDING IN THE CHEST. TECHNICAL DOCUMENTATION: JOB ID: [id number]
[2017-06-08 10:21] LABS: ALANINE AMINOTRANSFERASE 26 U/L (9-52); ALBUMIN 2.5 g/dL (3.5-5.0); ALKALINE PHOSPHATASE 82 U/L (38-126); ANION GAP 14 (5-19); ASPARTATE AMINO TRANSFERASE 18 U/L (14-36); BILIRUBIN,DIRECT 0.4 mg/dL (0.0-0.4); BILIRUBIN,TOTAL 0.5 mg/dL (0.2-1.3); BLOOD UREA NITROGEN 59 mg/dL (7-20); CALCIUM 9.2 mg/dL (8.4-10.2); CARBON DIOXIDE 17 mmol/L (22-30); CHLORIDE 105 mmol/L (98-107); GLUCOSE 121 mg/dL (75-110); SODIUM 135.6 mmol/L (137-145)
[2017-06-08 10:25] LABS: AMORPHOUS SEDIMENT,URINE TRACE /HPF; APPEARANCE,URINE CLOUDY; BILIRUBIN,URINE NEGATIVE (NEGATIVE); GLUCOSE, URINE NEGATIVE (NEGATIVE); KETONES,URINE NEGATIVE (NEGATIVE); LEUKOCYTE ESTERASE,URINE NEGATIVE (NEGATIVE); NITRITE,URINE NEGATIVE (NEGATIVE); PROTEIN,URINE 30 mg/dL (NEGATIVE); URINE SPECIFIC GRAVITY 1.012; UROBILINOGEN,URINE NEGATIVE mg/dL (<2.0)
[2017-06-08 10:32] LABS: BAND NEUTROPHILS % (MANUAL) 6 % (3-5); BASOPHILS % (MANUAL) 0 % (0-2); EOSINOPHILS % (MANUAL) 0 % (0-6); LYMPHOCYTES % (MANUAL) 6 % (13-45); TOTAL CELLS COUNTED 100
[2017-06-08 10:36] LABS: ANISOCYTOSIS SLIGHT; OVALOCYTES SLIGHT; POIKILOCYTOSIS SLIGHT; TOXIC GRANULATION SLIGHT; TOXIC VACUOLATION PRESENT
[2017-06-08 11:09] LABS: VENOUS BLOOD BASE EXCESS -5.4 mmol/L; VENOUS BLOOD HCO3 19.7 mmol/L (20-32); VENOUS BLOOD PH 7.34 (7.30-7.42)
[2017-06-08] MEDS ORDERED: METRONIDAZOLE 500 MG/NS RTU 100 ML IV ONE (11:23)
[2017-06-08] MEDS ORDERED: VANCOMYCIN HCL INJ 500 MG VIAL PO ONE ×2 (11:23→12:26)
[2017-06-08 16:06] VITALS: BP 120/58
--- NOTE | 2017-06-08 20:33 | EKG REPORT ---
SEVERITY:- NORMAL ECG - SINUS RHYTHM : Confirmed by: Sonali Chahal MD 08-Jun-2017 20:32:54
== END 2017-06-08 16:39 | disposition home health service (06) ==
LOC: ER 09:13
DX: A04.72 Enterocolitis due to Clostridium difficile, not specified as recurrent (principal); I12.9 Hypertensive chronic kidney disease with stage 1 through stage 4 chronic kidney disease, or unspecified chronic kidney disease; N18.3 Chronic kidney disease, stage 3 (moderate); R53.1 Weakness; D72.829 Elevated white blood cell count, unspecified; Z66 Do not resuscitate
CPT/HCPCS: 93005; 99285; 96361; 51701; 96365; 36415; 87040; 87045; 87086; 89055; 87205; 85025; 85610; 82272; 87088; 80053; 81001; 87186; 87493; 82803; 83605; 71010; 93010; J7030

== ENCOUNTER 2019-06-22 23:48 | Emergency (ER) | payer MEDICARE, MEDICAID ==
--- NOTE | 2019-06-23 02:30 | ER Document Report ---
ED Hand/Wrist Injury - General Chief Complaint: Wrist Injury Stated Complaint: LEFT WRIST INJURY Time Seen by Provider: 06/23/19 01:44 Notes: There is an 88-year-old female that comes emergency department for chief complaint of left wrist pain. She states it hurts intermittently, she states it is worse when she tries to bend her wrist in flexion. She states she thinks she hurt it getting in and out of chairs and using her walker. She is on Plavix. She does not recall any other injuries. She denies any other complaints or any other areas of pain. Son is at bedside TRAVEL OUTSIDE OF THE [place] IN LAST 30 DAYS: No - Related Data Allergies/Adverse Reactions: No Known Allergies Allergy (Verified 05/25/17 12:35) Home Medications: metoprolol. MOM. mintox. mifedipine. omega 3 tylenolloperamide prn. citalopram. plavix. feso4. melatonin. methylprednisolone Past Medical History - General Information source: Patient, Relative - Social History Smoking Status: Never Smoker Frequency of alcohol use: None Lives with: Family Family History: Reviewed & Not Pertinent Patient has suicidal ideation: No Patient has homicidal ideation: No - Past Medical History Cardiac Medical History: Reports: Hx Hypercholesterolemia, Hx Hypertension Renal/ Medical History: Denies: Hx Peritoneal Dialysis GI Medical History: Reports: Hx Gastroesophageal Reflux Disease Musculoskeletal Medical History: Reports Hx Arthritis Psychiatric Medical History: Reports: Hx Depression Past Surgical History: Reports: Hx Hysterectomy, Hx Orthopedic Surgery - toes - Immunizations Hx Diphtheria, Pertussis, Tetanus Vaccination: Yes Review of Systems - Review of Systems Constitutional: No symptoms reported EENT: No symptoms reported Cardiovascular: No symptoms reported Respiratory: No symptoms reported Gastrointestinal: No symptoms reported Genitourinary: No symptoms reported Female Genitourinary: No symptoms reported Musculoskeletal: See HPI Skin: No symptoms reported Hematologic/Lymphatic: No symptoms reported Neurological/Psychological: No symptoms reported Physical Exam - Vital signs Vitals: Temp Pulse Resp BP Pulse Ox 97.9 F 59 L 16 138/59 H 100 06/23/19 00:05 06/23/19 00:05 06/23/19 00:05 06/23/19 00:05 06/23/19 00:05 - Notes Notes: GENERAL: Alert, interacts well. No acute distress. HEAD: Normocephalic, atraumatic. EYES: Pupils equal, round, and reactive to light. Extraocular movements intact. ENT: Oral mucosa moist, tongue midline. Oropharynx unremarkable. Airway patent. LUNGS: Clear to auscultation bilaterally, no wheezes, rales, or rhonchi. No respiratory distress. HEART: Regular rate and rhythm. No murmur ABDOMEN: Soft, non-tender. Non-distended. EXTREMITIES: Pain with range of motion of the left wrist in flexion and extension but no pain with palpation, no snuffbox tenderness, normal capillary refill and sensation. Normal forearm, elbow, shoulder exam. BACK: no cervical, thoracic, lumbar midline tenderness. No saddle anesthesia, normal distal neurovascular exam. Moves all extremities in full range of motion. NEUROLOGICAL: Alert and oriented x3. Normal speech. Cranial nerves II through XII grossly intact. PSYCH: Normal affect, normal mood. SKIN: Warm, dry, normal turgor. No rashes or lesions noted. Course - Re-evaluation Re-evalutation: X-ray showing disassociation between the scaphoid and lunate bones. I suspect this is gradual but progressive. Patient has pain when flexion and extension of the wrist but no pain when holding still. No swelling, no snuffbox tenderness specifically noted, no specific tenderness with palpation of the wrist. Normal distal neurovascular exam. No other complaints. Results here is still pending (radiology is under a technical difficulty and significant delay) but I can see the images and the previous radiology report. I discussed with Dr. Colón, recommendation is for cock-up splint for the left wrist and close orthopedic follow-up. I discussed the details with patient and son at length. They state understanding and agreement with plan. - Vital Signs Vital signs: Temp Pulse Resp BP Pulse Ox 98.0 F 64 17 132/66 H 97 06/23/19 04:02 06/23/19 04:02 06/23/19 04:02 06/23/19 04:02 06/23/19 04:02 Discharge - Discharge Clinical Impression: Left wrist pain Condition: Stable Disposition: HOME, SELF-CARE Additional Instructions: The imaging shows separation between the bones of the wrist called the scaphoid and the lunate. This probably has progressed gradually with time. Please wear the wrist support to avoid flexion extension and worsening of the complication. Follow-up closely with orthopedics, call the listed referral below tomorrow to establish the follow-up. Take Tylenol for pain. Return for any concerning symptoms including severe worsening swelling or pain Dr. Mat Hernandez [address], [place] [id number]
[2019-06-23 04:03] VITALS: BP 132/66
--- NOTE | 2019-06-23 11:13 | RADIOLOGY REPORT (SQ) ---
EXAM DESCRIPTION: XR WRIST 3 OR MORE VIEWS COMPLETED DATE/TME: CLINICAL HISTORY: 88 years, Female, left wrist pain, swelling COMPARISON: None. NUMBER OF VIEWS: Three TECHNIQUE: Three views of the left wrist LIMITATIONS: None. FINDINGS: There is no acute fracture or dislocation. The scapholunate interval is widened which measures up to 6 mm. There is narrowing of the radiocarpal joint space and first carpometacarpal joint with subchondral sclerosis. IMPRESSION: Scapholunate dissociation. No definite acute fracture or dislocation. copyright 2010 [employer]- All Rights Reserved
== END 2019-06-23 04:02 | disposition home or self-care (01) ==
LOC: ER 23:48
DX: S69.92XA Unspecified injury of left wrist, hand and finger(s), initial encounter (principal); M25.532 Pain in left wrist; X58.XXXA Exposure to other specified factors, initial encounter; Z79.899 Other long term (current) drug therapy; I10 Essential (primary) hypertension
CPT/HCPCS: 99283; 73110; L3908